=== PATIENT | female | born 1955 | race Caucasian/White ===

== ENCOUNTER 2020-06-20 10:07 | Emergency (ER) | payer MEDICARE ==
[~2020-06-20] VITALS: Ht 157.5 cm; Wt 103.5 kg
[2020-06-20] MEDS ORDERED: SEVE0.8P6 PO (10:17)
[2020-06-20] MEDS ORDERED: ONDANSETRON HCL 4 MG/2 ML VIAL IVP ONE (10:45)
[2020-06-20 11:34] LABS: BASOPHILS % (AUTO) 2.4 % (0.0-2.0); EOSINOPHILS % (AUTO) 0.3 % (1.0-6.0); HEMATOCRIT 39.2 % (36-46); HEMOGLOBIN 13.1 g/dL (12.0-16.0); LYMPHOCYTES # (AUTO) 0.7 K/uL (1.0-4.8); LYMPHOCYTES % (AUTO) 14.9 % (22.0-44.0); MEAN CORPUSCULAR HEMOGLOBIN 33.2 pg (26.0-34.0); MEAN CORPUSCULAR HGB CONC 33.5 G/dL (31.0-37.0); MEAN CORPUSCULAR VOLUME 99 fL (80-100); MONOCYTES # (AUTO) 0.2 K/uL (0.1-1.0); MONOCYTES % (AUTO) 5.1 % (2.0-9.0); NEUTROPHILS # (AUTO) 3.5 K/uL (1.8-7.7); NEUTROPHILS % (AUTO) 77.3 % (40.0-70.0); PLATELET COUNT (AUTO) 178 K/uL (150-450); RED BLOOD CELL COUNT(AUTO) 3.95 MIL/uL (4.00-5.20)
[2020-06-20 12:19] LABS: CALCIUM, TOTAL 9.4 mg/dL (8.8-10.5); CREATININE 3.77 mg/dL (0.60-1.30); POTASSIUM 4.1 mmol/L (3.5-5.1)
[2020-06-20 12:22] LABS: COVID AG,FIA SOURCE NASOPHARYNGEAL
[2020-06-20 12:22] LABS: PROTHROMBIN TIME 10.2 SEC (9.4-11.6)
[2020-06-20 12:27] LABS: LACTIC ACID 1.8 mmol/L (0.4-2.0)
[2020-06-20 12:29] LABS: ALBUMIN 3.6 g/dL (3.4-5.0); BILIRUBIN,TOTAL 0.4 mg/dL (0.1-1.0); TOTAL PROTEIN, SERUM 7.6 g/dL (6.4-8.2)
[2020-06-20 13:00] VITALS: BP 110/62
== END 2020-06-20 13:15 | disposition home or self-care (01) ==
LOC: EMS 10:26
DX: K92.0 Hematemesis (principal); I12.0 Hypertensive chronic kidney disease with stage 5 chronic kidney disease or end stage renal disease; E11.22 Type 2 diabetes mellitus with diabetic chronic kidney disease; N18.6 End stage renal disease; I25.10 Atherosclerotic heart disease of native coronary artery without angina pectoris; Z20.822 Contact with and (suspected) exposure to COVID-19; Z99.2 Dependence on renal dialysis; Z88.1 Allergy status to other antibiotic agents
CPT/HCPCS: 36415; 71045; 80053; 83605; 83690; 83880; 84484; 85025; 85610; 85730; 86850; 86900; 86901; 87426; 93005; 96374; 99285; J2405

== ENCOUNTER 2022-03-19 21:46 | Inpatient (IN) | payer MEDICARE, OTHER ==
[~2022-03-19] VITALS: Ht 160 cm; Wt 110.0 kg
[~2022-03-19 21:46] MED LIST: SEVE0.8P6 PO
[2022-03-19 22:33] LABS: CALCIUM, TOTAL 8.8 mg/dL (8.8-10.5); CREATININE 4.33 mg/dL (0.60-1.30); POTASSIUM 4.7 mmol/L (3.5-5.1)
[2022-03-19 22:38] LABS: ALBUMIN 2.7 g/dL (3.4-5.0); BILIRUBIN,TOTAL 1.1 mg/dL (0.1-1.0); TOTAL PROTEIN, SERUM 6.7 g/dL (6.4-8.2)
[2022-03-19 22:39] LABS: BASOPHILS % (AUTO) 0.8 % (0.0-2.0); EOSINOPHILS % (AUTO) 0.2 % (1.0-6.0); LYMPHOCYTES % (AUTO) 6.2 % (22.0-44.0); MEAN CORPUSCULAR HEMOGLOBIN 35.1 pg (26.0-34.0); MEAN CORPUSCULAR HGB CONC 31.8 G/dL (31.0-37.0); MEAN CORPUSCULAR VOLUME 110 fL (80-100); MONOCYTES # (AUTO) 0.9 K/uL (0.1-1.0); MONOCYTES % (AUTO) 5.6 % (2.0-9.0); NEUTROPHILS # (AUTO) 13.8 K/uL (1.8-7.7); PLATELET COUNT (AUTO) 161 K/uL (150-450); RED BLOOD CELL COUNT(AUTO) 1.86 MIL/uL (4.00-5.20); RED CELL DISTRIBUTION WIDTH 16.1 % (11.5-14.5)
[2022-03-19 22:53] LABS: NEUTROPHILS % (AUTO) 87.2 % (40.0-70.0)
[2022-03-19 22:55] LABS: HEMATOCRIT 20.5 % (36-46); HEMOGLOBIN 6.5 g/dL (12.0-16.0)
[2022-03-19 23:25] LABS: COVID AG,FIA SOURCE NASAL SWAB
[2022-03-19] MEDS: PANTOPRAZOLE SODIUM 40 MG/VIAL IVP SCH (23:46)
[2022-03-20] VITALS (8 sets, daily range): BP systolic 90–123; BP diastolic 43–99
[2022-03-20] MEDS ORDERED: PANTOPRAZOLE SODIUM 40 MG/VIAL IVP ONE (00:30)
[2022-03-20] MEDS ORDERED: PANTOPRAZOLE SODIUM 80 MG in SODIUM CHLORIDE 0.9% 100 ML IV SCH (00:30)
[2022-03-20] MEDS ORDERED: ACETAMINOPHEN 650 MG/ISO-OSM 65 ML IV ONE (03:30)
[2022-03-20] MEDS ORDERED: LORazepam 2 MG/ML VIAL IVP ONE (03:30)
[2022-03-20 07:24] LABS: BASOPHILS % (AUTO) 0.6 % (0.0-2.0); EOSINOPHILS % (AUTO) 0.1 % (1.0-6.0); HEMATOCRIT 21.1 % (36-46); HEMOGLOBIN 7.1 g/dL (12.0-16.0); LYMPHOCYTES # (AUTO) 1.1 K/uL (1.0-4.8); LYMPHOCYTES % (AUTO) 6.6 % (22.0-44.0); MEAN CORPUSCULAR HEMOGLOBIN 34.7 pg (26.0-34.0); MEAN CORPUSCULAR HGB CONC 33.5 G/dL (31.0-37.0); MEAN CORPUSCULAR VOLUME 103 fL (80-100); MONOCYTES # (AUTO) 0.9 K/uL (0.1-1.0); MONOCYTES % (AUTO) 5.5 % (2.0-9.0); NEUTROPHILS # (AUTO) 14.8 K/uL (1.8-7.7); PLATELET COUNT (AUTO) 150 K/uL (150-450); RED BLOOD CELL COUNT(AUTO) 2.04 MIL/uL (4.00-5.20); RED CELL DISTRIBUTION WIDTH 18.4 % (11.5-14.5)
[2022-03-20 07:26] LABS: NEUTROPHILS % (AUTO) 87.2 % (40.0-70.0)
[2022-03-20] MEDS: DOCUSATE SODIUM 100 MG CAPSULE PO SCH ×2 (08:02→21:00)
[2022-03-20] MEDS: ACETAMINOPHEN 325 MG TABLET PO PRN ×2 (09:24→22:08)
[2022-03-20 10:26] LABS: INFLUENZA TYPE A NEGATIVE FOR TYPE A (NEGATIVE); INFLUENZA TYPE B NEGATIVE FOR TYPE B (NEGATIVE)
[2022-03-20] MEDS: PANTOPRAZOLE SODIUM 40 MG/VIAL IVP SCH ×2 (10:28→21:59)
[2022-03-20] MEDS: FOLIC ACID/VIT B COMPLEX AND C TABLET PO SCH (10:28)
[2022-03-20] MEDS ORDERED: LORazepam 1 MG TABLET PO ONE ×2 (13:00→23:30)
[2022-03-21] VITALS (9 sets, daily range): BP systolic 90–126; BP diastolic 37–77
[2022-03-21 07:05] LABS: CALCIUM, TOTAL 8.7 mg/dL (8.8-10.5); CREATININE 6.69 mg/dL (0.60-1.30); PHOSPHORUS 7.7 mg/dL (2.5-4.9)
[2022-03-21 07:11] LABS: POTASSIUM 6.2 mmol/L (3.5-5.1)
[2022-03-21 07:48] LABS: % IRON SATURATION 86.5 % (22-44)
[2022-03-21 08:45] LABS: HEMATOCRIT 21.4 % (36-46)
[2022-03-21] MEDS: FOLIC ACID/VIT B COMPLEX AND C TABLET PO SCH (09:00)
[2022-03-21] MEDS: PANTOPRAZOLE SODIUM 40 MG/VIAL IVP SCH ×2 (09:00→22:11)
[2022-03-21] MEDS: DOCUSATE SODIUM 100 MG CAPSULE PO SCH ×2 (09:00→21:00)
[2022-03-21] MEDS ORDERED: EPINEPHrine 1:10,000 [1 MG/10 ML] SYRINGE IM ONE (10:00)
[2022-03-21] MEDS ORDERED: DEXTROSE 50%-WATER 25 GM/50 ML SYRINGE IVP ONE (11:00)
[2022-03-21] MEDS ORDERED: CALCIUM GLUCONATE 100 MG/ML 10 ML IVP ONE (11:00)
[2022-03-21] MEDS ORDERED: INSULIN REGULAR, HUMAN 100 UNITS/ML IVP ONE (11:00)
[2022-03-21] MEDS ORDERED: BENZOCAINE 20% 50 MCG/SPRAY 57 GM TP ONE (12:37)
[2022-03-21 12:53] LABS: ABG BASE EXCESS -10.6 mmol/L (-2.0-3.0); ABG CARBOXYHEMOGLOBIN 0.8 % (0.0-1.5); ABG HCO3 16.6 mmol/L (22.0-26.0); ABG METHEMOGLOBIN 0.3 % (0.0-1.5); ABG OXYGEN CONTENT 12.1 mL/dL (15.0-23.0); ABG OXYGEN SATURATION 99.4 % (95.0-98.0); ABG OXYHEMOGLOBIN 98.3 % (94.0-100.0); ABG PCO2 32 mmHg (35-45); ABG PH 7.314 (7.35-7.450); ABG TOTAL HEMOGLOBIN 8.3 G/dL (12.0-18.0); PO2, ARTERIAL BG 227.4 mmHg (79.0-87.0); SOURCE, BLOOD GAS ARTERIAL; TEMPERATURE, FAHRENHEIT, BG 97.4 FAHREN (96.0-98.6)
[2022-03-21 12:54] LABS: O2 DEVICE,BLOOD GAS NC (ROOM AIR); SITE, BLOOD GAS LFT BRACHIAL
[2022-03-21 12:58] LABS: MEAN CORPUSCULAR HEMOGLOBIN 33.8 pg (26.0-34.0); MEAN CORPUSCULAR HGB CONC 31.6 G/dL (31.0-37.0); MEAN CORPUSCULAR VOLUME 107 fL (80-100); PLATELET COUNT (AUTO) 169 K/uL (150-450); RED CELL DISTRIBUTION WIDTH 18.4 % (11.5-14.5)
[2022-03-21 13:14] LABS: HEMATOCRIT 19.2 % (36-46); HEMOGLOBIN 6.1 g/dL (12.0-16.0)
[2022-03-21 13:36] LABS: BAND NEUTROPHILS % (MANUAL) 16 % (0-5); LYMPHOCYTES % (MANUAL) 2 % (22-44); MONOCYTES % (MANUAL) 6 % (2-9); SEGMENTED NEUTROPHILS % 76 % (40-70)
[2022-03-21] MEDS ORDERED: SODIUM CHLORIDE 0.9% 250 ML IV ONE (21:54)
[2022-03-21] MEDS: DEXTROSE 50%-WATER 25 GM/50 ML SYRINGE IVP PRN (22:10)
[2022-03-21] MEDS: CefTRIAXone 1 GM/DEXTROSE 50 ML IV SCH (22:11)
[2022-03-21] MEDS: DEXTROSE 5%-0.45% SODIUM CHL 1,000 ML IV SCH (22:30)
[2022-03-21 22:53] LABS: GLUCOMETER DEV NAME(LOC) 5S.1B; GLUCOSE,POINT OF CARE 82 MG/DL (70-110)
[2022-03-22] VITALS (7 sets, daily range): BP systolic 98–115; BP diastolic 37–71
[2022-03-22] MEDS: ACETAMINOPHEN 325 MG TABLET PO PRN ×2 (00:04→23:41)
[2022-03-22 00:30] LABS: HEMATOCRIT 24.5 % (36-46); HEMOGLOBIN 8.2 g/dL (12.0-16.0)
[2022-03-22 01:13] LABS: GLUCOMETER DEV NAME(LOC) 5S.2B; GLUCOSE,POINT OF CARE 20 MG/DL (70-110)
[2022-03-22] MEDS ORDERED: MORPHINE SULFATE 2 MG/ML SYRINGE IVP ONE (03:45)
[2022-03-22] MEDS ORDERED: IOHEXOL 350 MG/ML 100 ML VIAL ONE (04:12)
[2022-03-22] MEDS ORDERED: SODIUM CHLORIDE 0.9% 100 ML ONE (04:13)
[2022-03-22 06:47] LABS: GLUCOSE,POINT OF CARE 50 MG/DL (70-110)
[2022-03-22] MEDS: DEXTROSE 50%-WATER 25 GM/50 ML SYRINGE IVP PRN (06:53)
[2022-03-22 07:07] LABS: GLUCOSE,POINT OF CARE 299 MG/DL (70-110)
[2022-03-22] MEDS: PANTOPRAZOLE SODIUM 40 MG/VIAL IVP SCH ×2 (09:00→21:21)
[2022-03-22] MEDS: DOCUSATE SODIUM 100 MG CAPSULE PO SCH ×2 (09:00→21:00)
[2022-03-22] MEDS: EPOETIN ALFA 10,000 UNITS/ML VIAL SQ SCH (09:00)
[2022-03-22] MEDS: FOLIC ACID/VIT B COMPLEX AND C TABLET PO SCH (09:00)
[2022-03-22 09:15] LABS: BASOPHILS % (AUTO) 0.1 % (0.0-2.0); EOSINOPHILS % (AUTO) 0 % (1.0-6.0); HEMATOCRIT 23.1 % (36-46); HEMOGLOBIN 7.7 g/dL (12.0-16.0); LYMPHOCYTES # (AUTO) 0.4 K/uL (1.0-4.8); LYMPHOCYTES % (AUTO) 1.6 % (22.0-44.0); MEAN CORPUSCULAR HEMOGLOBIN 33.1 pg (26.0-34.0); MEAN CORPUSCULAR HGB CONC 33.4 G/dL (31.0-37.0); MEAN CORPUSCULAR VOLUME 99 fL (80-100); MONOCYTES # (AUTO) 0.8 K/uL (0.1-1.0); MONOCYTES % (AUTO) 3.5 % (2.0-9.0); NEUTROPHILS # (AUTO) 21.8 K/uL (1.8-7.7); PLATELET COUNT (AUTO) 160 K/uL (150-450); RED BLOOD CELL COUNT(AUTO) 2.32 MIL/uL (4.00-5.20); RED CELL DISTRIBUTION WIDTH 21.8 % (11.5-14.5)
[2022-03-22 09:16] LABS: NEUTROPHILS % (AUTO) 94.8 % (40.0-70.0)
[2022-03-22 09:27] LABS: CALCIUM, TOTAL 8.3 mg/dL (8.8-10.5); CREATININE 5.21 mg/dL (0.60-1.30); MAGNESIUM 1.9 mg/dL (1.80-2.40); PHOSPHORUS 5.7 mg/dL (2.5-4.9); POTASSIUM 4.6 mmol/L (3.5-5.1)
[2022-03-22 13:06] LABS: GLUCOSE,POINT OF CARE 175 MG/DL (70-110)
[2022-03-22 17:36] LABS: GLUCOMETER DEV NAME(LOC) 5N.1C; GLUCOSE,POINT OF CARE 115 MG/DL (70-110)
[2022-03-22] MEDS ORDERED: PHENYLEPHRINE 200 MG/D5%-WATER 250 ML IV PRN (18:00)
[2022-03-22] MEDS: DEXTROSE 5%-0.45% SODIUM CHL 1,000 ML IV SCH (18:21)
[2022-03-22 20:21] LABS: GLUCOMETER DEV NAME(LOC) 5S.1B; GLUCOSE,POINT OF CARE 136 MG/DL (70-110)
[2022-03-22] MEDS: CefTRIAXone 1 GM/DEXTROSE 50 ML IV SCH (21:20)
[2022-03-22] MEDS ORDERED: SODIUM CHLORIDE 0.9% 250 ML IV ONE (21:36)
[2022-03-23] VITALS (17 sets, daily range): BP systolic 100–155; BP diastolic 42–78
[2022-03-23 01:11] LABS: GLUCOSE,POINT OF CARE 69 MG/DL (70-110)
[2022-03-23 01:51] LABS: GLUCOSE,POINT OF CARE 157 MG/DL (70-110)
[2022-03-23] MEDS: MORPHINE SULFATE 2 MG/ML SYRINGE IVP PRN (01:55)
[2022-03-23 06:07] LABS: BASOPHILS % (AUTO) 0.5 % (0.0-2.0); EOSINOPHILS % (AUTO) 0 % (1.0-6.0); HEMATOCRIT 22.6 % (36-46); HEMOGLOBIN 7.4 g/dL (12.0-16.0); LYMPHOCYTES # (AUTO) 0.5 K/uL (1.0-4.8); LYMPHOCYTES % (AUTO) 2.7 % (22.0-44.0); MEAN CORPUSCULAR HEMOGLOBIN 33.6 pg (26.0-34.0); MEAN CORPUSCULAR HGB CONC 32.8 G/dL (31.0-37.0); MEAN CORPUSCULAR VOLUME 102 fL (80-100); MONOCYTES # (AUTO) 0.8 K/uL (0.1-1.0); MONOCYTES % (AUTO) 4.1 % (2.0-9.0); NEUTROPHILS # (AUTO) 18.1 K/uL (1.8-7.7); PLATELET COUNT (AUTO) 162 K/uL (150-450); RED BLOOD CELL COUNT(AUTO) 2.21 MIL/uL (4.00-5.20); RED CELL DISTRIBUTION WIDTH 21.7 % (11.5-14.5)
[2022-03-23 06:10] LABS: CALCIUM, TOTAL 8.3 mg/dL (8.8-10.5); CREATININE 6.76 mg/dL (0.60-1.30); POTASSIUM 5.2 mmol/L (3.5-5.1)
[2022-03-23 06:27] LABS: NEUTROPHILS % (AUTO) 92.7 % (40.0-70.0)
[2022-03-23] MEDS: DOCUSATE SODIUM 100 MG CAPSULE PO SCH ×2 (09:32→20:42)
[2022-03-23] MEDS: FOLIC ACID/VIT B COMPLEX AND C TABLET PO SCH (09:32)
[2022-03-23] MEDS: PANTOPRAZOLE SODIUM 40 MG/VIAL IVP SCH ×2 (09:33→20:42)
[2022-03-23 13:11] LABS: GLUCOSE,POINT OF CARE 134 MG/DL (70-110)
[2022-03-23 13:11] LABS: GLUCOSE,POINT OF CARE 177 MG/DL (70-110)
[2022-03-23] MEDS: ACETAMINOPHEN 325 MG TABLET PO PRN (14:24)
[2022-03-23] MEDS: DEXTROSE 5%-0.45% SODIUM CHL 1,000 ML IV SCH ×2 (14:30→20:58)
[2022-03-23] MEDS: CefTRIAXone 1 GM/DEXTROSE 50 ML IV SCH (20:43)
[2022-03-23] MEDS: INSULIN LISPRO 100 UNITS/ML SQ PRN (20:52)
[2022-03-24 00:16] LABS: GLUCOMETER DEV NAME(LOC) 5S.2B; GLUCOSE,POINT OF CARE 91 MG/DL (70-110)
[2022-03-24 00:22] LABS: GLUCOSE,POINT OF CARE 124 MG/DL (70-110)
[2022-03-24 00:22] LABS: GLUCOSE,POINT OF CARE 116 MG/DL (70-110)
[2022-03-24] MEDS: MORPHINE SULFATE 2 MG/ML SYRINGE IVP PRN ×3 (02:26→14:42)
[2022-03-24 04:31] VITALS: BP 122/57
[2022-03-24 06:12] LABS: GLUCOMETER DEV NAME(LOC) 5N.1C; GLUCOSE,POINT OF CARE 84 MG/DL (70-110)
[2022-03-24] MEDS: DEXTROSE 50%-WATER 25 GM/50 ML SYRINGE IVP PRN (06:23)
[2022-03-24] MEDS: LORazepam 2 MG/ML VIAL IVP PRN ×2 (06:28→14:42)
[2022-03-24 06:29] LABS: HEMATOCRIT 28.3 % (36-46); HEMOGLOBIN 9.3 g/dL (12.0-16.0); MEAN CORPUSCULAR HEMOGLOBIN 32.7 pg (26.0-34.0); MEAN CORPUSCULAR VOLUME 99 fL (80-100); PLATELET COUNT (AUTO) 148 K/uL (150-450); RED BLOOD CELL COUNT(AUTO) 2.85 MIL/uL (4.00-5.20); RED CELL DISTRIBUTION WIDTH 22.9 % (11.5-14.5)
[2022-03-24 06:46] LABS: GLUCOMETER DEV NAME(LOC) 5S.2B; GLUCOSE,POINT OF CARE < 10 MG/DL (70-110)
[2022-03-24 06:46] LABS: GLUCOMETER DEV NAME(LOC) 5S.2B; GLUCOSE,POINT OF CARE 146 MG/DL (70-110)
[2022-03-24 06:46] LABS: GLUCOMETER DEV NAME(LOC) 5S.2B; GLUCOSE,POINT OF CARE 70 MG/DL (70-110)
[2022-03-24 07:37] VITALS: BP 96/59
[2022-03-24 08:48] LABS: BAND NEUTROPHILS % (MANUAL) 21 % (0-5); LYMPHOCYTES % (MANUAL) 9 % (22-44); MONOCYTES % (MANUAL) 2 % (2-9); SEGMENTED NEUTROPHILS % 68 % (40-70)
[2022-03-24] MEDS: EPOETIN ALFA 10,000 UNITS/ML VIAL SQ SCH (09:24)
[2022-03-24] MEDS: DOCUSATE SODIUM 100 MG CAPSULE PO SCH ×2 (09:24→20:23)
[2022-03-24] MEDS: FOLIC ACID/VIT B COMPLEX AND C TABLET PO SCH (09:24)
[2022-03-24] MEDS: PANTOPRAZOLE SODIUM 40 MG/VIAL IVP SCH ×2 (09:25→20:22)
[2022-03-24 09:34] LABS: CALCIUM, TOTAL 8.4 mg/dL (8.8-10.5); CREATININE 4.73 mg/dL (0.60-1.30); POTASSIUM 4.5 mmol/L (3.5-5.1)
[2022-03-24 11:37] VITALS: BP 118/56
[2022-03-24 15:31] VITALS: BP 125/52
[2022-03-24] MEDS: NYSTATIN 15 GM POWDER BOTTLE TP SCH (17:07)
[2022-03-24] MEDS: ACETAMINOPHEN 325 MG TABLET PO PRN (17:10)
[2022-03-24] MEDS: CefTRIAXone 1 GM/DEXTROSE 50 ML IV SCH (19:39)
[2022-03-24 20:03] VITALS: BP 110/50
[2022-03-24] MEDS: INSULIN LISPRO 100 UNITS/ML SQ PRN (20:24)
[2022-03-24 20:41] LABS: GLUCOMETER DEV NAME(LOC) 5N.1C; GLUCOSE,POINT OF CARE 202 MG/DL (70-110)
[2022-03-24 20:57] LABS: GLUCOMETER DEV NAME(LOC) 5S.1B; GLUCOSE,POINT OF CARE 99 MG/DL (70-110)
[2022-03-24 20:57] LABS: GLUCOMETER DEV NAME(LOC) 5S.1B; GLUCOSE,POINT OF CARE 111 MG/DL (70-110)
[2022-03-25] VITALS (10 sets, daily range): BP systolic 92–116; BP diastolic 33–81
[2022-03-25] MEDS: DEXTROSE 50%-WATER 25 GM/50 ML SYRINGE IVP PRN (05:09)
[2022-03-25 05:36] LABS: GLUCOMETER DEV NAME(LOC) 5S.1B; GLUCOSE,POINT OF CARE 165 MG/DL (70-110)
[2022-03-25 05:51] LABS: GLUCOMETER DEV NAME(LOC) 5S.2B; GLUCOSE,POINT OF CARE 53 MG/DL (70-110)
[2022-03-25] MEDS: DEXTROSE 5%-0.45% SODIUM CHL 1,000 ML IV SCH (06:30)
[2022-03-25 06:33] LABS: ALBUMIN 2.3 g/dL (3.4-5.0); BILIRUBIN,TOTAL 0.5 mg/dL (0.1-1.0); CALCIUM, TOTAL 8.6 mg/dL (8.8-10.5); CREATININE 6.58 mg/dL (0.60-1.30); POTASSIUM 4.9 mmol/L (3.5-5.1)
[2022-03-25 06:41] LABS: HEMATOCRIT 30.1 % (36-46); HEMOGLOBIN 9.7 g/dL (12.0-16.0); MEAN CORPUSCULAR HEMOGLOBIN 32.2 pg (26.0-34.0); MEAN CORPUSCULAR HGB CONC 32.4 G/dL (31.0-37.0); MEAN CORPUSCULAR VOLUME 99 fL (80-100); PLATELET COUNT (AUTO) 147 K/uL (150-450); RED BLOOD CELL COUNT(AUTO) 3.03 MIL/uL (4.00-5.20); RED CELL DISTRIBUTION WIDTH 23.9 % (11.5-14.5)
[2022-03-25 06:59] LABS: C-REACTIVE PROTEIN QUANT 27.05 mg/dL (0.00-0.30)
[2022-03-25 08:25] LABS: BAND NEUTROPHILS % (MANUAL) 17 % (0-5); LYMPHOCYTES % (MANUAL) 6 % (22-44); MONOCYTES % (MANUAL) 5 % (2-9); SEGMENTED NEUTROPHILS % 72 % (40-70)
[2022-03-25] MEDS: PANTOPRAZOLE SODIUM 40 MG/VIAL IVP SCH ×2 (09:15→20:54)
[2022-03-25] MEDS: NYSTATIN 15 GM POWDER BOTTLE TP SCH (09:15)
[2022-03-25] MEDS: DOCUSATE SODIUM 100 MG CAPSULE PO SCH ×2 (09:15→20:53)
[2022-03-25] MEDS: FOLIC ACID/VIT B COMPLEX AND C TABLET PO SCH (09:15)
[2022-03-25 11:11] LABS: GLUCOMETER DEV NAME(LOC) 5N.1C; GLUCOSE,POINT OF CARE 189 MG/DL (70-110)
[2022-03-25] MEDS: INSULIN LISPRO 100 UNITS/ML SQ PRN (12:24)
[2022-03-25] MEDS: MORPHINE SULFATE 2 MG/ML SYRINGE IVP PRN (14:41)
[2022-03-25] MEDS ORDERED: SODIUM CHLORIDE 0.9% 2,000 ML ONE (15:27)
[2022-03-25] MEDS: TETRACYCLINE HCL 250 MG CAPSULE PO SCH (16:48)
[2022-03-25] MEDS: BISMUTH SUBSALICYLATE 262 MG CHEWABLE TABLET CHEW SCH ×2 (16:49→20:56)
[2022-03-25] MEDS: ACETAMINOPHEN 325 MG TABLET PO PRN (17:49)
[2022-03-25] MEDS: LORazepam 2 MG/ML VIAL IVP PRN (17:49)
[2022-03-25] MEDS: MetroNIDAZOLE 500 MG TABLET PO SCH (20:53)
[2022-03-25] MEDS: CefTRIAXone 1 GM/DEXTROSE 50 ML IV SCH (20:56)
[2022-03-25 21:31] LABS: GLUCOMETER DEV NAME(LOC) 5N.1C; GLUCOSE,POINT OF CARE 150 MG/DL (70-110)
[2022-03-25 21:31] LABS: GLUCOMETER DEV NAME(LOC) 5N.1C; GLUCOSE,POINT OF CARE 78 MG/DL (70-110)
[2022-03-25 21:55] LABS: HEMATOCRIT 27.3 % (36-46); HEMOGLOBIN 8.7 g/dL (12.0-16.0)
[2022-03-26] VITALS (10 sets, daily range): BP systolic 73–123; BP diastolic 40–66
[2022-03-26] MEDS ORDERED: MIDODRINE HCL 5 MG TABLET PO ONE (01:00)
[2022-03-26] MEDS ORDERED: SODIUM CHLORIDE 0.9% 250 ML IV ONE (01:00)
[2022-03-26] MEDS: DEXTROSE 5%-0.45% SODIUM CHL 1,000 ML IV SCH (04:29)
[2022-03-26 05:36] LABS: GLUCOMETER DEV NAME(LOC) 5S.2B; GLUCOSE,POINT OF CARE 191 MG/DL (70-110)
[2022-03-26 05:42] LABS: GLUCOSE,POINT OF CARE 166 MG/DL (70-110)
[2022-03-26 06:04] LABS: HEMATOCRIT 27.4 % (36-46); HEMOGLOBIN 8.9 g/dL (12.0-16.0); MEAN CORPUSCULAR HEMOGLOBIN 32.2 pg (26.0-34.0); MEAN CORPUSCULAR HGB CONC 32.5 G/dL (31.0-37.0); MEAN CORPUSCULAR VOLUME 99 fL (80-100); PLATELET COUNT (AUTO) 143 K/uL (150-450); RED BLOOD CELL COUNT(AUTO) 2.77 MIL/uL (4.00-5.20); RED CELL DISTRIBUTION WIDTH 23.6 % (11.5-14.5)
[2022-03-26 06:46] LABS: BAND NEUTROPHILS % (MANUAL) 16 % (0-5); LYMPHOCYTES % (MANUAL) 5 % (22-44); MONOCYTES % (MANUAL) 7 % (2-9); SEGMENTED NEUTROPHILS % 72 % (40-70)
[2022-03-26] MEDS: DOCUSATE SODIUM 100 MG CAPSULE PO SCH ×2 (08:52→20:38)
[2022-03-26] MEDS: NYSTATIN 15 GM POWDER BOTTLE TP SCH (08:52)
[2022-03-26] MEDS: ATORVASTATIN CALCIUM 40 MG TABLET PO SCH (08:52)
[2022-03-26] MEDS: PANTOPRAZOLE SODIUM 40 MG/VIAL IVP SCH ×2 (08:52→20:38)
[2022-03-26] MEDS: MetroNIDAZOLE 500 MG TABLET PO SCH ×2 (08:52→20:39)
[2022-03-26] MEDS: FOLIC ACID/VIT B COMPLEX AND C TABLET PO SCH (08:54)
[2022-03-26] MEDS: BISMUTH SUBSALICYLATE 262 MG CHEWABLE TABLET CHEW SCH ×4 (08:54→20:39)
[2022-03-26] MEDS: TETRACYCLINE HCL 250 MG CAPSULE PO SCH (08:54)
[2022-03-26 09:17] LABS: HEMOGLOBIN A1C 6.1 % (3.8-5.6)
[2022-03-26 09:47] LABS: CALCIUM, TOTAL 8.5 mg/dL (8.8-10.5); CREATININE 6.54 mg/dL (0.60-1.30); PHOSPHORUS 6.8 mg/dL (2.5-4.9); POTASSIUM 4.7 mmol/L (3.5-5.1)
[2022-03-26 10:09] LABS: C-REACTIVE PROTEIN QUANT 26.89 mg/dL (0.00-0.30)
[2022-03-26] MEDS: EPOETIN ALFA 10,000 UNITS/ML VIAL SQ SCH (12:11)
[2022-03-26 12:21] LABS: GLUCOSE,POINT OF CARE 115 MG/DL (70-110)
[2022-03-26 12:43] LABS: CALCIUM, TOTAL 8.3 mg/dL (8.8-10.5); CREATININE 6.71 mg/dL (0.60-1.30); POTASSIUM 4.7 mmol/L (3.5-5.1)
[2022-03-26 13:05] LABS: HEMATOCRIT 28.7 % (36-46); MEAN CORPUSCULAR HEMOGLOBIN 31.3 pg (26.0-34.0); MEAN CORPUSCULAR HGB CONC 31.4 G/dL (31.0-37.0); MEAN CORPUSCULAR VOLUME 100 fL (80-100); PLATELET COUNT (AUTO) 155 K/uL (150-450); RED BLOOD CELL COUNT(AUTO) 2.88 MIL/uL (4.00-5.20); RED CELL DISTRIBUTION WIDTH 25.2 % (11.5-14.5)
[2022-03-26 13:08] LABS: BAND NEUTROPHILS % (MANUAL) 17 % (0-5); LYMPHOCYTES % (MANUAL) 5 % (22-44); MONOCYTES % (MANUAL) 6 % (2-9); SEGMENTED NEUTROPHILS % 72 % (40-70)
[2022-03-26] MEDS: PHENYLEPHRINE HCL 800 MG in DEXTROSE 5%-WATER 170 ML IV PRN (14:09)
[2022-03-26] MEDS: MORPHINE SULFATE 2 MG/ML SYRINGE IVP PRN (14:47)
[2022-03-26] MEDS: CefTRIAXone 1 GM/DEXTROSE 50 ML IV SCH (20:31)
[2022-03-26 21:06] LABS: GLUCOSE,POINT OF CARE 119 MG/DL (70-110)
[2022-03-27] VITALS (14 sets, daily range): BP systolic 73–127; BP diastolic 26–78
[2022-03-27 00:06] LABS: GLUCOSE,POINT OF CARE 137 MG/DL (70-110)
[2022-03-27] MEDS ORDERED: SODIUM CHLORIDE 0.9% 250 ML IV ONE (03:08)
[2022-03-27] MEDS: DEXTROSE 5%-0.45% SODIUM CHL 1,000 ML IV SCH (03:48)
[2022-03-27] MEDS: ACETAMINOPHEN 325 MG TABLET PO PRN ×2 (03:48→09:12)
[2022-03-27 05:31] LABS: GLUCOSE,POINT OF CARE 124 MG/DL (70-110)
[2022-03-27 05:59] LABS: HEMATOCRIT 28.4 % (36-46); MEAN CORPUSCULAR HEMOGLOBIN 31.7 pg (26.0-34.0); MEAN CORPUSCULAR HGB CONC 31.8 G/dL (31.0-37.0); MEAN CORPUSCULAR VOLUME 100 fL (80-100); PLATELET COUNT (AUTO) 184 K/uL (150-450); RED BLOOD CELL COUNT(AUTO) 2.85 MIL/uL (4.00-5.20); RED CELL DISTRIBUTION WIDTH 24.8 % (11.5-14.5)
[2022-03-27 06:41] LABS: ALBUMIN 2.1 g/dL (3.4-5.0); BILIRUBIN,TOTAL 0.5 mg/dL (0.1-1.0); C-REACTIVE PROTEIN QUANT 24.79 mg/dL (0.00-0.30); CALCIUM, TOTAL 8.4 mg/dL (8.8-10.5); CREATININE 7.68 mg/dL (0.60-1.30); TOTAL PROTEIN, SERUM 6.9 g/dL (6.4-8.2)
[2022-03-27 08:02] LABS: BAND NEUTROPHILS % (MANUAL) 9 % (0-5); EOSINOPHILS % (MANUAL) 2 % (1-6); LYMPHOCYTES % (MANUAL) 7 % (22-44); MONOCYTES % (MANUAL) 2 % (2-9); SEGMENTED NEUTROPHILS % 80 % (40-70)
[2022-03-27] MEDS: DOCUSATE SODIUM 100 MG CAPSULE PO SCH ×2 (08:28→20:22)
[2022-03-27] MEDS: FOLIC ACID/VIT B COMPLEX AND C TABLET PO SCH (08:29)
[2022-03-27] MEDS: MetroNIDAZOLE 500 MG TABLET PO SCH ×2 (08:29→20:22)
[2022-03-27] MEDS: BISMUTH SUBSALICYLATE 262 MG CHEWABLE TABLET CHEW SCH ×4 (08:29→20:22)
[2022-03-27] MEDS: TETRACYCLINE HCL 250 MG CAPSULE PO SCH (08:29)
[2022-03-27] MEDS: PANTOPRAZOLE SODIUM 40 MG/VIAL IVP SCH ×2 (08:29→20:22)
[2022-03-27] MEDS: ATORVASTATIN CALCIUM 40 MG TABLET PO SCH (08:29)
[2022-03-27] MEDS: NYSTATIN 15 GM POWDER BOTTLE TP SCH (08:32)
[2022-03-27] MEDS ORDERED: DiphenhydrAMINE HCL 50 MG/ML VIAL IVP ONE (09:45)
[2022-03-27] MEDS: ONDANSETRON HCL 4 MG/2 ML VIAL IVP PRN (09:46)
[2022-03-27] MEDS ORDERED: CARV6 PO (12:25)
[2022-03-27] MEDS ORDERED: SEVE800T17 PO (12:25)
[2022-03-27] MEDS ORDERED: FURO80TA3 PO (12:25)
[2022-03-27 13:01] LABS: GLUCOSE,POINT OF CARE 137 MG/DL (70-110)
[2022-03-27] MEDS ORDERED: COSYNTROPIN 0.25 MG VIAL IVP ONE (15:00)
[2022-03-27] MEDS: MIDODRINE HCL 5 MG TABLET PO SCH ×2 (15:45→20:22)
[2022-03-27] MEDS: BENZONATATE 100 MG CAPSULE PO PRN (19:20)
[2022-03-27] MEDS: CefTRIAXone 1 GM/DEXTROSE 50 ML IV SCH (20:22)
[2022-03-27] MEDS: INSULIN LISPRO 100 UNITS/ML SQ PRN (20:39)
[2022-03-27 21:02] LABS: GLUCOSE,POINT OF CARE 84 MG/DL (70-110)
[2022-03-28] VITALS: BP 92/53
[2022-03-28 00:22] LABS: GLUCOSE,POINT OF CARE 167 MG/DL (70-110)
[2022-03-28] MEDS: DEXTROSE 5%-0.45% SODIUM CHL 1,000 ML IV SCH (02:56)
[2022-03-28 04:00] VITALS: BP 94/49
[2022-03-28] MEDS: BENZONATATE 100 MG CAPSULE PO PRN ×3 (05:59→19:59)
[2022-03-28 06:47] LABS: HEMOGLOBIN 9.4 g/dL (12.0-16.0)
[2022-03-28 07:09] LABS: ALBUMIN 2.1 g/dL (3.4-5.0); BILIRUBIN,TOTAL 0.4 mg/dL (0.1-1.0); CALCIUM, TOTAL 8.8 mg/dL (8.8-10.5); CREATININE 4.88 mg/dL (0.60-1.30); POTASSIUM 4.4 mmol/L (3.5-5.1); TOTAL PROTEIN, SERUM 6.5 g/dL (6.4-8.2)
[2022-03-28 07:15] LABS: BASOPHILS % (AUTO) 0.4 % (0.0-2.0); EOSINOPHILS % (AUTO) 0.9 % (1.0-6.0); HEMATOCRIT 29.9 % (36-46); LYMPHOCYTES % (AUTO) 5.8 % (22.0-44.0); MEAN CORPUSCULAR HEMOGLOBIN 31.4 pg (26.0-34.0); MEAN CORPUSCULAR HGB CONC 31.4 G/dL (31.0-37.0); MEAN CORPUSCULAR VOLUME 100 fL (80-100); MONOCYTES # (AUTO) 1.2 K/uL (0.1-1.0); MONOCYTES % (AUTO) 7.2 % (2.0-9.0); NEUTROPHILS # (AUTO) 14.3 K/uL (1.8-7.7); PLATELET COUNT (AUTO) 168 K/uL (150-450); RED BLOOD CELL COUNT(AUTO) 2.98 MIL/uL (4.00-5.20); RED CELL DISTRIBUTION WIDTH 24.3 % (11.5-14.5)
[2022-03-28 07:32] LABS: NEUTROPHILS % (AUTO) 85.7 % (40.0-70.0)
[2022-03-28 08:00] VITALS: BP 109/42
[2022-03-28] MEDS: DOCUSATE SODIUM 100 MG CAPSULE PO SCH ×2 (08:48→20:02)
[2022-03-28] MEDS: PANTOPRAZOLE SODIUM 40 MG/VIAL IVP SCH ×2 (08:48→20:02)
[2022-03-28] MEDS: BISMUTH SUBSALICYLATE 262 MG CHEWABLE TABLET CHEW SCH ×4 (08:48→20:02)
[2022-03-28] MEDS: MetroNIDAZOLE 500 MG TABLET PO SCH ×3 (08:49→20:01)
[2022-03-28] MEDS: FOLIC ACID/VIT B COMPLEX AND C TABLET PO SCH (08:49)
[2022-03-28] MEDS: ATORVASTATIN CALCIUM 40 MG TABLET PO SCH (08:49)
[2022-03-28] MEDS: MIDODRINE HCL 5 MG TABLET PO SCH ×3 (08:50→20:01)
[2022-03-28] MEDS: NYSTATIN 15 GM POWDER BOTTLE TP SCH (08:52)
[2022-03-28] MEDS ORDERED: INDIUM IN-111 OXYQUINOLINE/.5MCL ISOTOPE 1 EA INJ INJ ONE (09:00)
[2022-03-28] MEDS: TETRACYCLINE HCL 250 MG CAPSULE PO SCH (11:26)
[2022-03-28 11:47] LABS: GLUCOSE,POINT OF CARE 101 MG/DL (70-110)
[2022-03-28 12:00] VITALS: BP 99/45
[2022-03-28 15:13] LABS: GLUCOSE,POINT OF CARE 121 MG/DL (70-110)
[2022-03-28 16:00] VITALS: BP 101/63
[2022-03-28] MEDS ORDERED: SODIUM CHLORIDE 0.9% 500 ML IV ONE (16:30)
[2022-03-28 20:00] VITALS: BP_SYST 69; BP_SYST 89; BP_DIAS 82; BP_DIAS 89
[2022-03-28 20:03] LABS: GLUCOSE,POINT OF CARE 110 MG/DL (70-110)
[2022-03-28] MEDS: CefTRIAXone 1 GM/DEXTROSE 50 ML IV SCH (20:03)
[2022-03-28] MEDS: ACETAMINOPHEN 325 MG TABLET PO PRN (20:03)
[2022-03-28 21:54] LABS: GLUCOSE,POINT OF CARE 119 MG/DL (70-110)
[2022-03-29] VITALS (7 sets, daily range): BP systolic 110–136; BP diastolic 40–110
[2022-03-29] MEDS: DEXTROSE 5%-0.45% SODIUM CHL 1,000 ML IV SCH (02:22)
[2022-03-29 05:48] LABS: HEMATOCRIT 28.6 % (36-46); HEMOGLOBIN 9.1 g/dL (12.0-16.0); MEAN CORPUSCULAR HEMOGLOBIN 31.6 pg (26.0-34.0); MEAN CORPUSCULAR HGB CONC 31.7 G/dL (31.0-37.0); MEAN CORPUSCULAR VOLUME 100 fL (80-100); PLATELET COUNT (AUTO) 185 K/uL (150-450); RED BLOOD CELL COUNT(AUTO) 2.87 MIL/uL (4.00-5.20); RED CELL DISTRIBUTION WIDTH 25.1 % (11.5-14.5)
[2022-03-29 05:54] LABS: ALBUMIN 1.9 g/dL (3.4-5.0); BILIRUBIN,TOTAL 0.4 mg/dL (0.1-1.0); C-REACTIVE PROTEIN QUANT 13.31 mg/dL (0.00-0.30); CALCIUM, TOTAL 8.5 mg/dL (8.8-10.5); CREATININE 6.35 mg/dL (0.60-1.30); POTASSIUM 4.2 mmol/L (3.5-5.1)
[2022-03-29 06:54] LABS: BAND NEUTROPHILS % (MANUAL) 8 % (0-5); EOSINOPHILS % (MANUAL) 1 % (1-6); LYMPHOCYTES % (MANUAL) 6 % (22-44); MONOCYTES % (MANUAL) 5 % (2-9); SEGMENTED NEUTROPHILS % 80 % (40-70)
[2022-03-29 07:28] LABS: GLUCOSE,POINT OF CARE 100 MG/DL (70-110)
[2022-03-29] MEDS: BISMUTH SUBSALICYLATE 262 MG CHEWABLE TABLET CHEW SCH ×4 (08:14→20:02)
[2022-03-29] MEDS: PANTOPRAZOLE SODIUM 40 MG/VIAL IVP SCH ×2 (08:14→20:02)
[2022-03-29] MEDS: MetroNIDAZOLE 500 MG TABLET PO SCH ×3 (08:15→20:02)
[2022-03-29] MEDS: DOCUSATE SODIUM 100 MG CAPSULE PO SCH ×2 (08:15→19:47)
[2022-03-29] MEDS: ATORVASTATIN CALCIUM 40 MG TABLET PO SCH (08:16)
[2022-03-29] MEDS: FOLIC ACID/VIT B COMPLEX AND C TABLET PO SCH (08:16)
[2022-03-29] MEDS: MIDODRINE HCL 5 MG TABLET PO SCH ×3 (08:16→20:03)
[2022-03-29] MEDS: TETRACYCLINE HCL 250 MG CAPSULE PO SCH (09:56)
[2022-03-29] MEDS: NYSTATIN 15 GM POWDER BOTTLE TP SCH (09:56)
[2022-03-29] MEDS: EPOETIN ALFA 10,000 UNITS/ML VIAL SQ SCH (09:57)
[2022-03-29 12:29] LABS: GLUCOSE,POINT OF CARE 109 MG/DL (70-110)
[2022-03-29] MEDS: BENZONATATE 100 MG CAPSULE PO PRN ×2 (12:37→20:08)
[2022-03-29] MEDS: DOXYCYCLINE HYCLATE 100 MG TABLET PO SCH ×2 (15:47→20:03)
[2022-03-29 19:43] LABS: GLUCOSE,POINT OF CARE 90 MG/DL (70-110)
[2022-03-29] MEDS: CefTRIAXone 1 GM/DEXTROSE 50 ML IV SCH (20:02)
[2022-03-29 21:33] LABS: GLUCOSE,POINT OF CARE 89 MG/DL (70-110)
[2022-03-29] MEDS: MORPHINE SULFATE 2 MG/ML SYRINGE IVP PRN (23:29)
[2022-03-30] VITALS (16 sets, daily range): BP systolic 97–142; BP diastolic 35–50
[2022-03-30] MEDS ORDERED: SODIUM CHLORIDE 0.9% 100 ML ONE (01:44)
[2022-03-30] MEDS ORDERED: IOHEXOL 350 MG/ML 100 ML VIAL ONE (01:45)
[2022-03-30] MEDS: DEXTROSE 5%-0.45% SODIUM CHL 1,000 ML IV SCH (02:39)
[2022-03-30] MEDS: BENZONATATE 100 MG CAPSULE PO PRN (04:25)
[2022-03-30 05:57] LABS: BASOPHILS % (AUTO) 0.3 % (0.0-2.0); EOSINOPHILS % (AUTO) 0.8 % (1.0-6.0); HEMATOCRIT 28.8 % (36-46); HEMOGLOBIN 9.2 g/dL (12.0-16.0); LYMPHOCYTES # (AUTO) 0.6 K/uL (1.0-4.8); LYMPHOCYTES % (AUTO) 3.9 % (22.0-44.0); MEAN CORPUSCULAR HEMOGLOBIN 32.1 pg (26.0-34.0); MEAN CORPUSCULAR VOLUME 100 fL (80-100); MONOCYTES % (AUTO) 6.6 % (2.0-9.0); NEUTROPHILS # (AUTO) 13.9 K/uL (1.8-7.7); PLATELET COUNT (AUTO) 197 K/uL (150-450); RED BLOOD CELL COUNT(AUTO) 2.88 MIL/uL (4.00-5.20); RED CELL DISTRIBUTION WIDTH 24.8 % (11.5-14.5)
[2022-03-30 06:02] LABS: NEUTROPHILS % (AUTO) 88.4 % (40.0-70.0)
[2022-03-30 06:38] LABS: GLUCOSE,POINT OF CARE 93 MG/DL (70-110)
[2022-03-30] MEDS: DOCUSATE SODIUM 100 MG CAPSULE PO SCH ×2 (09:00→20:31)
[2022-03-30] MEDS: ATORVASTATIN CALCIUM 40 MG TABLET PO SCH (09:19)
[2022-03-30] MEDS: MetroNIDAZOLE 500 MG TABLET PO SCH ×3 (09:19→20:31)
[2022-03-30] MEDS: BISMUTH SUBSALICYLATE 262 MG CHEWABLE TABLET CHEW SCH ×4 (09:19→20:30)
[2022-03-30] MEDS: PANTOPRAZOLE SODIUM 40 MG/VIAL IVP SCH ×2 (09:19→20:30)
[2022-03-30] MEDS: FOLIC ACID/VIT B COMPLEX AND C TABLET PO SCH (09:20)
[2022-03-30] MEDS: MIDODRINE HCL 5 MG TABLET PO SCH ×3 (09:20→20:27)
[2022-03-30] MEDS: TETRACYCLINE HCL 250 MG CAPSULE PO SCH (09:21)
[2022-03-30] MEDS: DOXYCYCLINE HYCLATE 100 MG TABLET PO SCH (09:21)
[2022-03-30] MEDS: NYSTATIN 15 GM POWDER BOTTLE TP SCH (09:22)
[2022-03-30] MEDS: ONDANSETRON HCL 4 MG/2 ML VIAL IVP PRN (09:28)
[2022-03-30 13:07] LABS: CORTISOL Baseline 14.2 ug/dL; CORTISOL STIMULATED,ACTH 29.1 ug/dL (Not Estab.)
[2022-03-30 15:08] LABS: GLUCOSE,POINT OF CARE 106 MG/DL (70-110)
[2022-03-30 18:12] LABS: GLUCOSE,POINT OF CARE 106 MG/DL (70-110)
[2022-03-30] MEDS ORDERED: SODIUM CHLORIDE 0.9% 250 ML IV ONE (19:46)
[2022-03-30] MEDS: CefTRIAXone 1 GM/DEXTROSE 50 ML IV SCH (20:20)
[2022-03-31] VITALS: BP 116/40
[2022-03-31] MEDS: BENZONATATE 100 MG CAPSULE PO PRN ×3 (00:33→22:34)
[2022-03-31 00:58] LABS: GLUCOSE,POINT OF CARE 100 MG/DL (70-110)
[2022-03-31] MEDS: DEXTROSE 5%-0.45% SODIUM CHL 1,000 ML IV SCH ×2 (02:30→14:35)
[2022-03-31 04:00] VITALS: BP 114/44
[2022-03-31 05:57] LABS: BASOPHILS % (AUTO) 0.4 % (0.0-2.0); EOSINOPHILS % (AUTO) 0.7 % (1.0-6.0); HEMOGLOBIN 9.4 g/dL (12.0-16.0); LYMPHOCYTES # (AUTO) 0.5 K/uL (1.0-4.8); LYMPHOCYTES % (AUTO) 3.2 % (22.0-44.0); MEAN CORPUSCULAR HEMOGLOBIN 32.5 pg (26.0-34.0); MEAN CORPUSCULAR HGB CONC 32.3 G/dL (31.0-37.0); MEAN CORPUSCULAR VOLUME 101 fL (80-100); MONOCYTES # (AUTO) 1.1 K/uL (0.1-1.0); MONOCYTES % (AUTO) 7.4 % (2.0-9.0); PLATELET COUNT (AUTO) 180 K/uL (150-450); RED BLOOD CELL COUNT(AUTO) 2.88 MIL/uL (4.00-5.20); RED CELL DISTRIBUTION WIDTH 25.8 % (11.5-14.5)
[2022-03-31 06:11] LABS: C-REACTIVE PROTEIN QUANT 8.76 mg/dL (0.00-0.30)
[2022-03-31 06:27] LABS: NEUTROPHILS % (AUTO) 88.3 % (40.0-70.0)
[2022-03-31 08:00] VITALS: BP 114/62
[2022-03-31] MEDS: FOLIC ACID/VIT B COMPLEX AND C TABLET PO SCH (09:04)
[2022-03-31] MEDS: TETRACYCLINE HCL 250 MG CAPSULE PO SCH (09:04)
[2022-03-31] MEDS: ATORVASTATIN CALCIUM 40 MG TABLET PO SCH (09:06)
[2022-03-31] MEDS: DOCUSATE SODIUM 100 MG CAPSULE PO SCH ×2 (09:06→21:00)
[2022-03-31] MEDS: PANTOPRAZOLE SODIUM 40 MG/VIAL IVP SCH ×2 (09:07→20:58)
[2022-03-31] MEDS: MIDODRINE HCL 5 MG TABLET PO SCH ×3 (09:09→21:01)
[2022-03-31] MEDS: NYSTATIN 15 GM POWDER BOTTLE TP SCH (09:11)
[2022-03-31] MEDS: EPOETIN ALFA 10,000 UNITS/ML VIAL SQ SCH (09:14)
[2022-03-31] MEDS: BISMUTH SUBSALICYLATE 262 MG CHEWABLE TABLET CHEW SCH ×4 (10:47→21:05)
[2022-03-31] MEDS: MetroNIDAZOLE 500 MG TABLET PO SCH ×3 (10:54→21:01)
[2022-03-31 12:00] VITALS: BP 104/53
[2022-03-31 12:54] LABS: GLUCOSE,POINT OF CARE 99 MG/DL (70-110)
[2022-03-31 16:00] VITALS: BP 115/50
[2022-03-31 19:33] LABS: GLUCOSE,POINT OF CARE 123 MG/DL (70-110)
[2022-03-31 19:33] LABS: GLUCOSE,POINT OF CARE 120 MG/DL (70-110)
[2022-03-31 20:00] VITALS: BP 110/59
[2022-03-31] MEDS: INSULIN LISPRO 100 UNITS/ML SQ PRN (20:57)
[2022-03-31] MEDS: CefTRIAXone 1 GM/DEXTROSE 50 ML IV SCH (21:05)
[2022-03-31 21:13] LABS: GLUCOSE,POINT OF CARE 156 MG/DL (70-110)
[2022-04-01] VITALS (15 sets, daily range): BP systolic 90–139; BP diastolic 48–74
[2022-04-01] MEDS: LORazepam 2 MG/ML VIAL IVP PRN (00:25)
[2022-04-01 07:54] LABS: CREATININE 6.08 mg/dL (0.60-1.30); PHOSPHORUS 5.9 mg/dL (2.5-4.9); POTASSIUM 3.3 mmol/L (3.5-5.1)
[2022-04-01] MEDS: MetroNIDAZOLE 500 MG TABLET PO SCH ×2 (08:45→21:30)
[2022-04-01] MEDS: FOLIC ACID/VIT B COMPLEX AND C TABLET PO SCH (08:46)
[2022-04-01] MEDS: MIDODRINE HCL 5 MG TABLET PO SCH ×3 (08:46→21:30)
[2022-04-01] MEDS: ATORVASTATIN CALCIUM 40 MG TABLET PO SCH (08:46)
[2022-04-01] MEDS: NYSTATIN 15 GM POWDER BOTTLE TP SCH (08:47)
[2022-04-01] MEDS: PANTOPRAZOLE SODIUM 40 MG/VIAL IVP SCH ×2 (08:47→21:29)
[2022-04-01] MEDS: TETRACYCLINE HCL 250 MG CAPSULE PO SCH (08:47)
[2022-04-01] MEDS: DOCUSATE SODIUM 100 MG CAPSULE PO SCH ×2 (08:47→21:00)
[2022-04-01] MEDS: BISMUTH SUBSALICYLATE 262 MG CHEWABLE TABLET CHEW SCH ×4 (08:47→21:31)
[2022-04-01 13:02] LABS: GLUCOSE,POINT OF CARE 101 MG/DL (70-110)
[2022-04-01 13:02] LABS: GLUCOSE,POINT OF CARE 111 MG/DL (70-110)
[2022-04-01] MEDS: BENZONATATE 100 MG CAPSULE PO PRN (19:39)
[2022-04-01] MEDS: CefTRIAXone 1 GM/DEXTROSE 50 ML IV SCH (19:39)
[2022-04-01] MEDS: ACETAMINOPHEN 325 MG TABLET PO PRN (19:48)
[2022-04-01 20:22] LABS: GLUCOSE,POINT OF CARE 109 MG/DL (70-110)
[2022-04-01] MEDS: DEXTROSE 50%-WATER 25 GM/50 ML SYRINGE IVP PRN (20:48)
[2022-04-01] MEDS: DEXTROSE 5%-0.45% SODIUM CHL 1,000 ML IV SCH (20:53)
[2022-04-01 22:33] LABS: GLUCOSE,POINT OF CARE 179 MG/DL (70-110)
[2022-04-02] VITALS: BP 107/51
[2022-04-02] MEDS: GuaiFENesin/D-METHORPHAN [SUGAR-FREE] 200-20MG/10 ML SYRUP UDCUP PO PRN ×3 (00:07→21:51)
[2022-04-02 04:00] VITALS: BP 107/55
[2022-04-02 08:00] VITALS: BP 98/58
[2022-04-02] MEDS: TETRACYCLINE HCL 250 MG CAPSULE PO SCH (08:47)
[2022-04-02] MEDS: BISMUTH SUBSALICYLATE 262 MG CHEWABLE TABLET CHEW SCH ×3 (08:48→21:00)
[2022-04-02] MEDS: MIDODRINE HCL 5 MG TABLET PO SCH ×2 (08:49→21:00)
[2022-04-02] MEDS: FOLIC ACID/VIT B COMPLEX AND C TABLET PO SCH (08:49)
[2022-04-02] MEDS: MetroNIDAZOLE 500 MG TABLET PO SCH ×2 (08:54→21:47)
[2022-04-02] MEDS: ATORVASTATIN CALCIUM 40 MG TABLET PO SCH (08:55)
[2022-04-02] MEDS: EPOETIN ALFA 10,000 UNITS/ML VIAL SQ SCH (08:55)
[2022-04-02] MEDS: BENZONATATE 100 MG CAPSULE PO PRN (08:55)
[2022-04-02] MEDS: PANTOPRAZOLE SODIUM 40 MG/VIAL IVP SCH ×2 (09:00→21:46)
[2022-04-02] MEDS: NYSTATIN 15 GM POWDER BOTTLE TP SCH (09:00)
[2022-04-02] MEDS: DOCUSATE SODIUM 100 MG CAPSULE PO SCH ×2 (09:00→21:47)
[2022-04-02 10:21] LABS: GLUCOSE,POINT OF CARE 122 MG/DL (70-110)
[2022-04-02 10:21] LABS: GLUCOSE,POINT OF CARE 122 MG/DL (70-110)
[2022-04-02] MEDS ORDERED: POTASSIUM CHLORIDE 20 MEQ ER TABLET PO ONE (10:45)
[2022-04-02 12:00] VITALS: BP 97/51
[2022-04-02 12:06] LABS: GLUCOSE,POINT OF CARE 108 MG/DL (70-110)
[2022-04-02 13:00] LABS: BASOPHILS % (AUTO) 0.5 % (0.0-2.0); EOSINOPHILS % (AUTO) 0.6 % (1.0-6.0); HEMATOCRIT 32.3 % (36-46); HEMOGLOBIN 9.8 g/dL (12.0-16.0); LYMPHOCYTES # (AUTO) 0.5 K/uL (1.0-4.8); LYMPHOCYTES % (AUTO) 3.7 % (22.0-44.0); MEAN CORPUSCULAR HEMOGLOBIN 31.5 pg (26.0-34.0); MEAN CORPUSCULAR HGB CONC 30.3 G/dL (31.0-37.0); MEAN CORPUSCULAR VOLUME 104 fL (80-100); MONOCYTES # (AUTO) 0.8 K/uL (0.1-1.0); MONOCYTES % (AUTO) 5.9 % (2.0-9.0); NEUTROPHILS # (AUTO) 12.9 K/uL (1.8-7.7); PLATELET COUNT (AUTO) 131 K/uL (150-450); RED BLOOD CELL COUNT(AUTO) 3.11 MIL/uL (4.00-5.20); RED CELL DISTRIBUTION WIDTH 26.7 % (11.5-14.5)
[2022-04-02 13:01] LABS: NEUTROPHILS % (AUTO) 89.3 % (40.0-70.0)
[2022-04-02 13:13] LABS: ALBUMIN 1.9 g/dL (3.4-5.0); BILIRUBIN,TOTAL 0.4 mg/dL (0.1-1.0); C-REACTIVE PROTEIN QUANT 6.93 mg/dL (0.00-0.30); CALCIUM, TOTAL 8.5 mg/dL (8.8-10.5); CREATININE 4.9 mg/dL (0.60-1.30); POTASSIUM 3.7 mmol/L (3.5-5.1); TOTAL PROTEIN, SERUM 6.1 g/dL (6.4-8.2)
[2022-04-02 16:00] VITALS: BP 97/51
[2022-04-02 18:17] LABS: GLUCOSE,POINT OF CARE 123 MG/DL (70-110)
[2022-04-02 20:00] VITALS: BP 121/66
[2022-04-03] VITALS (15 sets, daily range): BP systolic 93–126; BP diastolic 44–76
[2022-04-03 00:41] LABS: GLUCOSE,POINT OF CARE 114 MG/DL (70-110)
[2022-04-03] MEDS: DEXTROSE 5%-0.45% SODIUM CHL 1,000 ML IV SCH (02:45)
[2022-04-03 06:17] LABS: GLUCOSE,POINT OF CARE 135 MG/DL (70-110)
[2022-04-03] MEDS: BISMUTH SUBSALICYLATE 262 MG CHEWABLE TABLET CHEW SCH ×4 (07:53→21:53)
[2022-04-03] MEDS: PANTOPRAZOLE SODIUM 40 MG/VIAL IVP SCH ×2 (07:53→21:53)
[2022-04-03] MEDS: MetroNIDAZOLE 500 MG TABLET PO SCH ×2 (07:53→21:53)
[2022-04-03] MEDS: ATORVASTATIN CALCIUM 40 MG TABLET PO SCH (07:54)
[2022-04-03] MEDS: TETRACYCLINE HCL 250 MG CAPSULE PO SCH (07:54)
[2022-04-03] MEDS: FOLIC ACID/VIT B COMPLEX AND C TABLET PO SCH (07:54)
[2022-04-03] MEDS: DOCUSATE SODIUM 100 MG CAPSULE PO SCH ×2 (07:54→21:53)
[2022-04-03] MEDS: MIDODRINE HCL 5 MG TABLET PO SCH ×3 (07:55→21:53)
[2022-04-03] MEDS: BENZONATATE 100 MG CAPSULE PO PRN ×3 (07:55→21:53)
[2022-04-03 08:42] LABS: POTASSIUM 4.5 mmol/L (3.5-5.1)
[2022-04-03 08:43] LABS: BILIRUBIN,TOTAL 0.5 mg/dL (0.1-1.0); CALCIUM, TOTAL 8.5 mg/dL (8.8-10.5); CREATININE 5.82 mg/dL (0.60-1.30); TOTAL PROTEIN, SERUM 6.7 g/dL (6.4-8.2)
[2022-04-03] MEDS: NYSTATIN 15 GM POWDER BOTTLE TP SCH (09:00)
[2022-04-03 10:01] LABS: BASOPHILS % (AUTO) 1.4 % (0.0-2.0); EOSINOPHILS % (AUTO) 0.5 % (1.0-6.0); HEMATOCRIT 33.4 % (36-46); HEMOGLOBIN 10.5 g/dL (12.0-16.0); LYMPHOCYTES # (AUTO) 0.5 K/uL (1.0-4.8); LYMPHOCYTES % (AUTO) 3.3 % (22.0-44.0); MEAN CORPUSCULAR HEMOGLOBIN 32.2 pg (26.0-34.0); MEAN CORPUSCULAR HGB CONC 31.5 G/dL (31.0-37.0); MEAN CORPUSCULAR VOLUME 102 fL (80-100); MONOCYTES # (AUTO) 0.7 K/uL (0.1-1.0); MONOCYTES % (AUTO) 4.6 % (2.0-9.0); NEUTROPHILS # (AUTO) 13.4 K/uL (1.8-7.7); PLATELET COUNT (AUTO) 142 K/uL (150-450); RED BLOOD CELL COUNT(AUTO) 3.26 MIL/uL (4.00-5.20); RED CELL DISTRIBUTION WIDTH 26.1 % (11.5-14.5)
[2022-04-03 10:02] LABS: NEUTROPHILS % (AUTO) 90.2 % (40.0-70.0)
[2022-04-03 11:56] LABS: GLUCOSE,POINT OF CARE 123 MG/DL (70-110)
[2022-04-03] MEDS: PHENYLEPHRINE HCL 800 MG in DEXTROSE 5%-WATER 170 ML IV PRN (14:06)
[2022-04-03] MEDS: GuaiFENesin/D-METHORPHAN [SUGAR-FREE] 200-20MG/10 ML SYRUP UDCUP PO PRN ×2 (14:11→21:53)
[2022-04-03 18:11] LABS: GLUCOSE,POINT OF CARE 114 MG/DL (70-110)
[2022-04-03] MEDS: ALBUMIN HUMAN 25%-12.5GM/50ML 50 ML IV SCH (18:47)
[2022-04-03] MEDS: INSULIN LISPRO 100 UNITS/ML SQ PRN (21:55)
[2022-04-04] VITALS: BP 107/46
[2022-04-04] MEDS: ACETAMINOPHEN 325 MG TABLET PO PRN (00:04)
[2022-04-04] MEDS: ALBUMIN HUMAN 25%-12.5GM/50ML 50 ML IV SCH ×3 (00:04→17:13)
[2022-04-04 02:31] LABS: GLUCOSE,POINT OF CARE 167 MG/DL (70-110)
[2022-04-04] MEDS: DEXTROSE 5%-0.45% SODIUM CHL 1,000 ML IV SCH (03:01)
[2022-04-04 04:00] VITALS: BP 117/54
[2022-04-04 08:00] VITALS: BP 119/48
[2022-04-04 08:31] LABS: BASOPHILS % (AUTO) 0.8 % (0.0-2.0); EOSINOPHILS % (AUTO) 0.6 % (1.0-6.0); HEMATOCRIT 31.4 % (36-46); HEMOGLOBIN 9.7 g/dL (12.0-16.0); LYMPHOCYTES # (AUTO) 0.6 K/uL (1.0-4.8); LYMPHOCYTES % (AUTO) 5.2 % (22.0-44.0); MEAN CORPUSCULAR HEMOGLOBIN 31.9 pg (26.0-34.0); MEAN CORPUSCULAR HGB CONC 31.1 G/dL (31.0-37.0); MEAN CORPUSCULAR VOLUME 103 fL (80-100); MONOCYTES # (AUTO) 0.8 K/uL (0.1-1.0); MONOCYTES % (AUTO) 6.7 % (2.0-9.0); NEUTROPHILS # (AUTO) 10.3 K/uL (1.8-7.7); PLATELET COUNT (AUTO) 114 K/uL (150-450); RED BLOOD CELL COUNT(AUTO) 3.05 MIL/uL (4.00-5.20); RED CELL DISTRIBUTION WIDTH 26.3 % (11.5-14.5)
[2022-04-04 08:32] LABS: NEUTROPHILS % (AUTO) 86.7 % (40.0-70.0)
[2022-04-04] MEDS: PANTOPRAZOLE SODIUM 40 MG/VIAL IVP SCH ×2 (08:48→20:43)
[2022-04-04] MEDS: TETRACYCLINE HCL 250 MG CAPSULE PO SCH (08:48)
[2022-04-04] MEDS: FOLIC ACID/VIT B COMPLEX AND C TABLET PO SCH (08:48)
[2022-04-04] MEDS: BISMUTH SUBSALICYLATE 262 MG CHEWABLE TABLET CHEW SCH ×4 (08:49→20:43)
[2022-04-04] MEDS: MIDODRINE HCL 5 MG TABLET PO SCH ×3 (08:49→20:43)
[2022-04-04] MEDS: MetroNIDAZOLE 500 MG TABLET PO SCH ×2 (08:49→20:43)
[2022-04-04] MEDS: ATORVASTATIN CALCIUM 40 MG TABLET PO SCH (08:49)
[2022-04-04] MEDS: DOCUSATE SODIUM 100 MG CAPSULE PO SCH ×2 (08:49→20:43)
[2022-04-04 09:23] LABS: ALBUMIN 2.3 g/dL (3.4-5.0); BILIRUBIN,TOTAL 0.5 mg/dL (0.1-1.0); CALCIUM, TOTAL 8.5 mg/dL (8.8-10.5); CREATININE 4.02 mg/dL (0.60-1.30); POTASSIUM 3.8 mmol/L (3.5-5.1); TOTAL PROTEIN, SERUM 6.5 g/dL (6.4-8.2)
[2022-04-04 09:36] LABS: GLUCOSE,POINT OF CARE 131 MG/DL (70-110)
[2022-04-04] MEDS: NYSTATIN 15 GM POWDER BOTTLE TP SCH (09:42)
[2022-04-04 12:00] VITALS: BP 112/58
[2022-04-04 14:32] LABS: C-REACTIVE PROTEIN QUANT 3.91 mg/dL (0.00-0.30)
[2022-04-04] MEDS: GuaiFENesin/D-METHORPHAN [SUGAR-FREE] 200-20MG/10 ML SYRUP UDCUP PO PRN (15:58)
[2022-04-04 16:00] VITALS: BP 110/50
[2022-04-04 17:01] LABS: GLUCOSE,POINT OF CARE 130 MG/DL (70-110)
[2022-04-04 19:26] LABS: GLUCOSE,POINT OF CARE 113 MG/DL (70-110)
[2022-04-04 20:00] VITALS: BP 120/64
[2022-04-04] MEDS: INSULIN LISPRO 100 UNITS/ML SQ PRN (21:35)
[2022-04-04 23:42] LABS: GLUCOSE,POINT OF CARE 170 MG/DL (70-110)
[2022-04-05] VITALS: BP 125/66
[2022-04-05] MEDS: ALBUMIN HUMAN 25%-12.5GM/50ML 50 ML IV SCH ×3 (00:05→16:51)
[2022-04-05 04:00] VITALS: BP 121/63
[2022-04-05] MEDS: DEXTROSE 5%-0.45% SODIUM CHL 1,000 ML IV SCH (04:12)
[2022-04-05 06:50] LABS: BASOPHILS % (AUTO) 0.4 % (0.0-2.0); HEMATOCRIT 31.1 % (36-46); HEMOGLOBIN 9.7 g/dL (12.0-16.0); LYMPHOCYTES # (AUTO) 0.7 K/uL (1.0-4.8); LYMPHOCYTES % (AUTO) 5.6 % (22.0-44.0); MEAN CORPUSCULAR HEMOGLOBIN 32.3 pg (26.0-34.0); MEAN CORPUSCULAR HGB CONC 31.2 G/dL (31.0-37.0); MEAN CORPUSCULAR VOLUME 103 fL (80-100); MONOCYTES # (AUTO) 0.7 K/uL (0.1-1.0); MONOCYTES % (AUTO) 6.1 % (2.0-9.0); NEUTROPHILS # (AUTO) 10.4 K/uL (1.8-7.7); PLATELET COUNT (AUTO) 105 K/uL (150-450); RED BLOOD CELL COUNT(AUTO) 3.01 MIL/uL (4.00-5.20); RED CELL DISTRIBUTION WIDTH 25.9 % (11.5-14.5)
[2022-04-05 07:00] LABS: NEUTROPHILS % (AUTO) 86.9 % (40.0-70.0)
[2022-04-05 07:05] LABS: ALBUMIN 2.7 g/dL (3.4-5.0); BILIRUBIN,TOTAL 0.6 mg/dL (0.1-1.0); CALCIUM, TOTAL 8.9 mg/dL (8.8-10.5); CREATININE 5.24 mg/dL (0.60-1.30); POTASSIUM 4.1 mmol/L (3.5-5.1); TOTAL PROTEIN, SERUM 6.7 g/dL (6.4-8.2)
[2022-04-05 08:00] VITALS: BP 104/65
[2022-04-05] MEDS: ATORVASTATIN CALCIUM 40 MG TABLET PO SCH (08:41)
[2022-04-05] MEDS: PANTOPRAZOLE SODIUM 40 MG/VIAL IVP SCH ×2 (08:41→21:18)
[2022-04-05] MEDS: MetroNIDAZOLE 500 MG TABLET PO SCH ×2 (08:42→21:18)
[2022-04-05] MEDS: MIDODRINE HCL 5 MG TABLET PO SCH ×3 (08:42→21:19)
[2022-04-05] MEDS: FOLIC ACID/VIT B COMPLEX AND C TABLET PO SCH (08:42)
[2022-04-05] MEDS: EPOETIN ALFA 10,000 UNITS/ML VIAL SQ SCH (08:44)
[2022-04-05] MEDS: TETRACYCLINE HCL 250 MG CAPSULE PO SCH (08:44)
[2022-04-05] MEDS: DOCUSATE SODIUM 100 MG CAPSULE PO SCH ×2 (08:45→21:18)
[2022-04-05] MEDS: BISMUTH SUBSALICYLATE 262 MG CHEWABLE TABLET CHEW SCH ×4 (08:54→21:00)
[2022-04-05] MEDS: NYSTATIN 15 GM POWDER BOTTLE TP SCH (08:54)
[2022-04-05 12:00] VITALS: BP 122/44
[2022-04-05 13:40] LABS: GLUCOSE,POINT OF CARE 136 MG/DL (70-110)
[2022-04-05 13:41] LABS: GLUCOSE,POINT OF CARE 132 MG/DL (70-110)
[2022-04-05 16:00] VITALS: BP 110/76
[2022-04-05] MEDS: GuaiFENesin/D-METHORPHAN [SUGAR-FREE] 200-20MG/10 ML SYRUP UDCUP PO PRN (16:50)
[2022-04-05] MEDS: MORPHINE SULFATE 2 MG/ML SYRINGE IVP PRN (16:50)
[2022-04-05] MEDS: INSULIN LISPRO 100 UNITS/ML SQ PRN (18:18)
[2022-04-05 20:00] VITALS: BP 92/72
[2022-04-06] VITALS (16 sets, daily range): BP systolic 94–168; BP diastolic 68–96
[2022-04-06 00:16] LABS: GLUCOSE,POINT OF CARE 104 MG/DL (70-110)
[2022-04-06] MEDS: ALBUMIN HUMAN 25%-12.5GM/50ML 50 ML IV SCH ×2 (04:32→09:18)
[2022-04-06] MEDS: DEXTROSE 5%-0.45% SODIUM CHL 1,000 ML IV SCH (04:33)
[2022-04-06 04:36] LABS: GLUCOSE,POINT OF CARE 147 MG/DL (70-110)
[2022-04-06] MEDS ORDERED: SODIUM CHLORIDE 0.9% 250 ML IV ONE (04:59)
[2022-04-06] MEDS: INSULIN LISPRO 100 UNITS/ML SQ PRN ×2 (05:20→20:56)
[2022-04-06 06:09] LABS: BASOPHILS % (AUTO) 0.7 % (0.0-2.0); EOSINOPHILS % (AUTO) 0.8 % (1.0-6.0); HEMATOCRIT 29.5 % (36-46); HEMOGLOBIN 9.2 g/dL (12.0-16.0); LYMPHOCYTES # (AUTO) 0.6 K/uL (1.0-4.8); LYMPHOCYTES % (AUTO) 5.8 % (22.0-44.0); MEAN CORPUSCULAR HEMOGLOBIN 32.8 pg (26.0-34.0); MEAN CORPUSCULAR HGB CONC 31.3 G/dL (31.0-37.0); MEAN CORPUSCULAR VOLUME 105 fL (80-100); MONOCYTES # (AUTO) 0.8 K/uL (0.1-1.0); MONOCYTES % (AUTO) 7.3 % (2.0-9.0); NEUTROPHILS # (AUTO) 9.5 K/uL (1.8-7.7); PLATELET COUNT (AUTO) 99 K/uL (150-450); RED BLOOD CELL COUNT(AUTO) 2.81 MIL/uL (4.00-5.20); RED CELL DISTRIBUTION WIDTH 25.9 % (11.5-14.5)
[2022-04-06 06:11] LABS: GLUCOSE,POINT OF CARE 238 MG/DL (70-110)
[2022-04-06 06:26] LABS: ALBUMIN 2.8 g/dL (3.4-5.0); BILIRUBIN,TOTAL 0.6 mg/dL (0.1-1.0); CALCIUM, TOTAL 8.3 mg/dL (8.8-10.5); CREATININE 6.12 mg/dL (0.60-1.30); POTASSIUM 4.2 mmol/L (3.5-5.1); TOTAL PROTEIN, SERUM 6.5 g/dL (6.4-8.2)
[2022-04-06 07:46] LABS: NEUTROPHILS % (AUTO) 85.4 % (40.0-70.0)
[2022-04-06] MEDS: BISMUTH SUBSALICYLATE 262 MG CHEWABLE TABLET CHEW SCH ×5 (09:00→20:49)
[2022-04-06] MEDS: DOCUSATE SODIUM 100 MG CAPSULE PO SCH ×2 (09:18→20:35)
[2022-04-06] MEDS: PANTOPRAZOLE SODIUM 40 MG/VIAL IVP SCH ×2 (09:18→20:35)
[2022-04-06] MEDS: TETRACYCLINE HCL 250 MG CAPSULE PO SCH (09:19)
[2022-04-06] MEDS: ATORVASTATIN CALCIUM 40 MG TABLET PO SCH (09:20)
[2022-04-06] MEDS: MetroNIDAZOLE 500 MG TABLET PO SCH ×2 (09:20→20:35)
[2022-04-06] MEDS: MIDODRINE HCL 5 MG TABLET PO SCH ×3 (09:20→20:35)
[2022-04-06] MEDS: FOLIC ACID/VIT B COMPLEX AND C TABLET PO SCH (09:21)
[2022-04-06] MEDS: NYSTATIN 15 GM POWDER BOTTLE TP SCH (09:25)
[2022-04-06] MEDS ORDERED: SODIUM CHLORIDE 0.9% 2,000 ML ONE (10:38)
[2022-04-06 12:01] LABS: GLUCOSE,POINT OF CARE 84 MG/DL (70-110)
[2022-04-06 18:32] LABS: GLUCOSE,POINT OF CARE 95 MG/DL (70-110)
[2022-04-06 21:01] LABS: GLUCOSE,POINT OF CARE 145 MG/DL (70-110)
[2022-04-07] VITALS: BP 110/74
[2022-04-07 04:00] VITALS: BP 119/65
[2022-04-07] MEDS: DEXTROSE 5%-0.45% SODIUM CHL 1,000 ML IV SCH (05:32)
[2022-04-07 07:26] LABS: GLUCOSE,POINT OF CARE 107 MG/DL (70-110)
[2022-04-07 08:00] VITALS: BP 133/62
[2022-04-07] MEDS: FOLIC ACID/VIT B COMPLEX AND C TABLET PO SCH ×2 (08:36→09:00)
[2022-04-07] MEDS: DOCUSATE SODIUM 100 MG CAPSULE PO SCH ×3 (08:36→21:07)
[2022-04-07] MEDS: PANTOPRAZOLE SODIUM 40 MG/VIAL IVP SCH ×3 (08:36→21:08)
[2022-04-07] MEDS: MetroNIDAZOLE 500 MG TABLET PO SCH ×3 (08:36→21:07)
[2022-04-07] MEDS: EPOETIN ALFA 10,000 UNITS/ML VIAL SQ SCH ×2 (08:36→09:00)
[2022-04-07] MEDS: ATORVASTATIN CALCIUM 40 MG TABLET PO SCH ×2 (08:37→09:00)
[2022-04-07] MEDS: BISMUTH SUBSALICYLATE 262 MG CHEWABLE TABLET CHEW SCH ×5 (08:37→21:00)
[2022-04-07] MEDS: MIDODRINE HCL 5 MG TABLET PO SCH ×4 (08:37→21:07)
[2022-04-07] MEDS: TETRACYCLINE HCL 250 MG CAPSULE PO SCH ×2 (09:30→11:00)
[2022-04-07] MEDS: NYSTATIN 15 GM POWDER BOTTLE TP SCH (09:30)
[2022-04-07] MEDS ORDERED: VERAPAMIL HCL 2.5 MG/ML 2 ML VIAL ONE (11:28)
[2022-04-07] MEDS ORDERED: IOHEXOL 300 MG/ML 100 ML VIAL ONE (11:28)
[2022-04-07] MEDS ORDERED: LIDOCAINE/PF 1% 30 ML VIAL ONE (11:28)
[2022-04-07] MEDS ORDERED: HEPARIN SODIUM 1000 UNITS/NS 0 ML ONE (11:28)
[2022-04-07] MEDS ORDERED: IOHEXOL 300 MG/ML 50 ML VIAL ONE (11:28)
[2022-04-07] MEDS ORDERED: NITROGLYCERIN 50 MG/D5% WATER 0 ML ONE (11:28)
[2022-04-07] MEDS ORDERED: SODIUM BICARBONATE 50 MEQ/50 ML VIAL ONE (11:28)
[2022-04-07] MEDS: DEXTROSE 50%-WATER 25 GM/50 ML SYRINGE IVP PRN (12:10)
[2022-04-07 12:52] VITALS: BP 144/63
[2022-04-07 13:11] LABS: GLUCOSE,POINT OF CARE 71 MG/DL (70-110)
[2022-04-07 16:00] VITALS: BP 132/73
[2022-04-07 20:00] VITALS: BP 123/40
[2022-04-07 20:26] LABS: GLUCOSE,POINT OF CARE 104 MG/DL (70-110)
[2022-04-07] MEDS: GuaiFENesin/D-METHORPHAN [SUGAR-FREE] 200-20MG/10 ML SYRUP UDCUP PO PRN (21:06)
[2022-04-07] MEDS: ACETAMINOPHEN 325 MG TABLET PO PRN (21:07)
[2022-04-07] MEDS: MORPHINE SULFATE 2 MG/ML SYRINGE IVP PRN (21:18)
[2022-04-08] VITALS (15 sets, daily range): BP systolic 102–142; BP diastolic 45–87
[2022-04-08 00:26] LABS: GLUCOSE,POINT OF CARE 122 MG/DL (70-110)
[2022-04-08] MEDS: DEXTROSE 5%-0.45% SODIUM CHL 1,000 ML IV SCH (02:30)
[2022-04-08 07:16] LABS: GLUCOSE,POINT OF CARE 112 MG/DL (70-110)
[2022-04-08 07:16] LABS: GLUCOSE,POINT OF CARE 86 MG/DL (70-110)
[2022-04-08] MEDS: MetroNIDAZOLE 500 MG TABLET PO SCH ×2 (09:00→21:10)
[2022-04-08] MEDS: DOCUSATE SODIUM 100 MG CAPSULE PO SCH ×2 (09:00→21:10)
[2022-04-08] MEDS: MIDODRINE HCL 5 MG TABLET PO SCH ×3 (09:00→21:10)
[2022-04-08] MEDS: NYSTATIN 15 GM POWDER BOTTLE TP SCH (09:00)
[2022-04-08] MEDS: ATORVASTATIN CALCIUM 40 MG TABLET PO SCH ×2 (09:00→21:11)
[2022-04-08] MEDS: FOLIC ACID/VIT B COMPLEX AND C TABLET PO SCH (09:00)
[2022-04-08] MEDS: TETRACYCLINE HCL 250 MG CAPSULE PO SCH (09:00)
[2022-04-08] MEDS: BISMUTH SUBSALICYLATE 262 MG CHEWABLE TABLET CHEW SCH ×2 (09:00→14:08)
[2022-04-08 10:35] LABS: BASOPHILS % (AUTO) 0.5 % (0.0-2.0); EOSINOPHILS % (AUTO) 1.2 % (1.0-6.0); HEMATOCRIT 30.3 % (36-46); HEMOGLOBIN 9.5 g/dL (12.0-16.0); LYMPHOCYTES # (AUTO) 0.3 K/uL (1.0-4.8); LYMPHOCYTES % (AUTO) 4.3 % (22.0-44.0); MEAN CORPUSCULAR HEMOGLOBIN 32.4 pg (26.0-34.0); MEAN CORPUSCULAR HGB CONC 31.5 G/dL (31.0-37.0); MEAN CORPUSCULAR VOLUME 103 fL (80-100); MONOCYTES # (AUTO) 0.6 K/uL (0.1-1.0); MONOCYTES % (AUTO) 7.4 % (2.0-9.0); NEUTROPHILS # (AUTO) 6.9 K/uL (1.8-7.7); PLATELET COUNT (AUTO) 96 K/uL (150-450); RED BLOOD CELL COUNT(AUTO) 2.94 MIL/uL (4.00-5.20); RED CELL DISTRIBUTION WIDTH 24.9 % (11.5-14.5)
[2022-04-08 10:37] LABS: NEUTROPHILS % (AUTO) 86.6 % (40.0-70.0)
[2022-04-08 10:50] LABS: CALCIUM, TOTAL 8.4 mg/dL (8.8-10.5); CREATININE 2.7 mg/dL (0.60-1.30); POTASSIUM 3.1 mmol/L (3.5-5.1)
[2022-04-08] MEDS: PANTOPRAZOLE SODIUM 40 MG/VIAL IVP SCH ×2 (11:06→21:11)
[2022-04-08 12:31] LABS: GLUCOSE,POINT OF CARE 82 MG/DL (70-110)
[2022-04-08] MEDS: MORPHINE SULFATE 2 MG/ML SYRINGE IVP PRN ×2 (16:38→23:26)
[2022-04-08] MEDS: ACETAMINOPHEN 325 MG TABLET PO PRN (18:22)
[2022-04-08 20:21] LABS: GLUCOSE,POINT OF CARE 114 MG/DL (70-110)
[2022-04-08 23:31] LABS: GLUCOSE,POINT OF CARE 104 MG/DL (70-110)
[2022-04-09] VITALS: BP 106/41
[2022-04-09] MEDS: DEXTROSE 5%-0.45% SODIUM CHL 1,000 ML IV SCH (02:30)
[2022-04-09 04:00] VITALS: BP 114/38
[2022-04-09 06:31] LABS: GLUCOSE,POINT OF CARE 107 MG/DL (70-110)
[2022-04-09 08:29] VITALS: BP 135/64
[2022-04-09] MEDS: PANTOPRAZOLE SODIUM 40 MG/VIAL IVP SCH ×2 (09:02→20:49)
[2022-04-09] MEDS: MIDODRINE HCL 5 MG TABLET PO SCH ×3 (09:02→20:50)
[2022-04-09] MEDS: NYSTATIN 15 GM POWDER BOTTLE TP SCH (09:02)
[2022-04-09] MEDS: FOLIC ACID/VIT B COMPLEX AND C TABLET PO SCH (09:02)
[2022-04-09] MEDS: DOCUSATE SODIUM 100 MG CAPSULE PO SCH ×2 (09:02→20:50)
[2022-04-09] MEDS: MORPHINE SULFATE 2 MG/ML SYRINGE IVP PRN (09:03)
[2022-04-09] MEDS: EPOETIN ALFA 10,000 UNITS/ML VIAL SQ SCH (09:15)
[2022-04-09 12:00] VITALS: BP 128/64
[2022-04-09 14:46] VITALS: BP 134/83
[2022-04-09] MEDS: ACETAMINOPHEN 325 MG TABLET PO PRN (15:31)
[2022-04-09 20:03] VITALS: BP 122/66
[2022-04-09 20:06] LABS: GLUCOMETER DEV NAME(LOC) 5S.2B; GLUCOSE,POINT OF CARE 89 MG/DL (70-110)
[2022-04-09] MEDS: ATORVASTATIN CALCIUM 40 MG TABLET PO SCH (20:50)
[2022-04-09] MEDS: INSULIN LISPRO 100 UNITS/ML SQ PRN (21:11)
[2022-04-10] VITALS (16 sets, daily range): BP systolic 100–149; BP diastolic 48–88
[2022-04-10] MEDS: MORPHINE SULFATE 2 MG/ML SYRINGE IVP PRN ×2 (01:12→16:18)
[2022-04-10 06:52] LABS: BASOPHILS % (AUTO) 1.4 % (0.0-2.0); HEMOGLOBIN 9.2 g/dL (12.0-16.0); LYMPHOCYTES # (AUTO) 0.5 K/uL (1.0-4.8); LYMPHOCYTES % (AUTO) 7.3 % (22.0-44.0); MEAN CORPUSCULAR HEMOGLOBIN 32.8 pg (26.0-34.0); MEAN CORPUSCULAR HGB CONC 31.5 G/dL (31.0-37.0); MEAN CORPUSCULAR VOLUME 104 fL (80-100); MONOCYTES # (AUTO) 0.8 K/uL (0.1-1.0); MONOCYTES % (AUTO) 11.9 % (2.0-9.0); NEUTROPHILS # (AUTO) 4.9 K/uL (1.8-7.7); NEUTROPHILS % (AUTO) 77.4 % (40.0-70.0); PLATELET COUNT (AUTO) 104 K/uL (150-450); RED BLOOD CELL COUNT(AUTO) 2.79 MIL/uL (4.00-5.20); RED CELL DISTRIBUTION WIDTH 25.2 % (11.5-14.5)
[2022-04-10 06:59] LABS: ALBUMIN 2.5 g/dL (3.4-5.0); BILIRUBIN,TOTAL 0.6 mg/dL (0.1-1.0); CALCIUM, TOTAL 8.6 mg/dL (8.8-10.5); CREATININE 5.12 mg/dL (0.60-1.30); POTASSIUM 3.6 mmol/L (3.5-5.1); TOTAL PROTEIN, SERUM 6.3 g/dL (6.4-8.2)
[2022-04-10] MEDS: DEXTROSE 5%-0.45% SODIUM CHL 1,000 ML IV SCH (08:10)
[2022-04-10] MEDS: DOCUSATE SODIUM 100 MG CAPSULE PO SCH ×2 (08:10→20:56)
[2022-04-10] MEDS: NYSTATIN 15 GM POWDER BOTTLE TP SCH (08:10)
[2022-04-10] MEDS: MIDODRINE HCL 5 MG TABLET PO SCH ×3 (08:10→20:56)
[2022-04-10] MEDS: FOLIC ACID/VIT B COMPLEX AND C TABLET PO SCH (08:10)
[2022-04-10] MEDS: PANTOPRAZOLE SODIUM 40 MG/VIAL IVP SCH ×2 (08:10→20:56)
[2022-04-10] MEDS ORDERED: SODIUM CHLORIDE 0.9% 2,000 ML ONE (14:00)
[2022-04-10] MEDS: ACETAMINOPHEN 325 MG TABLET PO PRN (14:11)
[2022-04-10] MEDS: ATORVASTATIN CALCIUM 40 MG TABLET PO SCH (20:56)
[2022-04-11 01:05] VITALS: BP 122/54
[2022-04-11] MEDS: MORPHINE SULFATE 2 MG/ML SYRINGE IVP PRN (01:39)
[2022-04-11] MEDS: DEXTROSE 5%-0.45% SODIUM CHL 1,000 ML IV SCH (03:15)
[2022-04-11 04:37] VITALS: BP 141/86
[2022-04-11 05:56] LABS: GLUCOMETER DEV NAME(LOC) 5S.2B; GLUCOSE,POINT OF CARE 117 MG/DL (70-110)
[2022-04-11 07:22] VITALS: BP 130/70
[2022-04-11 08:16] LABS: GLUCOMETER DEV NAME(LOC) 5S.1B; GLUCOSE,POINT OF CARE 93 MG/DL (70-110)
[2022-04-11 08:16] LABS: GLUCOMETER DEV NAME(LOC) 5S.1B; GLUCOSE,POINT OF CARE 91 MG/DL (70-110)
[2022-04-11] MEDS: DOCUSATE SODIUM 100 MG CAPSULE PO SCH ×2 (09:05→20:13)
[2022-04-11] MEDS: PANTOPRAZOLE SODIUM 40 MG/VIAL IVP SCH ×2 (09:05→20:12)
[2022-04-11] MEDS: FOLIC ACID/VIT B COMPLEX AND C TABLET PO SCH (09:05)
[2022-04-11] MEDS: MIDODRINE HCL 5 MG TABLET PO SCH ×3 (09:06→20:13)
[2022-04-11] MEDS: NYSTATIN 15 GM POWDER BOTTLE TP SCH (09:12)
[2022-04-11 09:29] LABS: MAGNESIUM 1.7 mg/dL (1.80-2.40); PHOSPHORUS 3.6 mg/dL (2.5-4.9)
[2022-04-11 09:36] LABS: ALBUMIN 2.4 g/dL (3.4-5.0); BILIRUBIN,TOTAL 0.5 mg/dL (0.1-1.0); CALCIUM, TOTAL 8.6 mg/dL (8.8-10.5); CREATININE 3.94 mg/dL (0.60-1.30); POTASSIUM 3.9 mmol/L (3.5-5.1); TOTAL PROTEIN, SERUM 6.3 g/dL (6.4-8.2)
[2022-04-11 09:39] LABS: BASOPHILS % (AUTO) 1.3 % (0.0-2.0); EOSINOPHILS % (AUTO) 1.2 % (1.0-6.0); HEMATOCRIT 29.4 % (36-46); HEMOGLOBIN 9.3 g/dL (12.0-16.0); LYMPHOCYTES # (AUTO) 0.4 K/uL (1.0-4.8); MEAN CORPUSCULAR HEMOGLOBIN 33.5 pg (26.0-34.0); MEAN CORPUSCULAR HGB CONC 31.6 G/dL (31.0-37.0); MEAN CORPUSCULAR VOLUME 106 fL (80-100); MONOCYTES # (AUTO) 0.6 K/uL (0.1-1.0); MONOCYTES % (AUTO) 8.8 % (2.0-9.0); NEUTROPHILS # (AUTO) 5.7 K/uL (1.8-7.7); NEUTROPHILS % (AUTO) 82.7 % (40.0-70.0); PLATELET COUNT (AUTO) 101 K/uL (150-450); RED BLOOD CELL COUNT(AUTO) 2.78 MIL/uL (4.00-5.20); RED CELL DISTRIBUTION WIDTH 24.8 % (11.5-14.5)
[2022-04-11 11:29] VITALS: BP 153/84
[2022-04-11 11:42] LABS: GLUCOMETER DEV NAME(LOC) 5N.1C; GLUCOSE,POINT OF CARE 95 MG/DL (70-110)
[2022-04-11 15:10] VITALS: BP 111/83
[2022-04-11] MEDS: INSULIN LISPRO 100 UNITS/ML SQ PRN (19:01)
[2022-04-11 19:43] VITALS: BP 148/76
[2022-04-11] MEDS: ATORVASTATIN CALCIUM 40 MG TABLET PO SCH (20:13)
[2022-04-12 00:17] VITALS: BP 149/81
[2022-04-12 00:25] LABS: GLUCOMETER DEV NAME(LOC) 5N.1C; GLUCOSE,POINT OF CARE 157 MG/DL (70-110)
[2022-04-12 00:25] LABS: GLUCOMETER DEV NAME(LOC) 5N.1C; GLUCOSE,POINT OF CARE 127 MG/DL (70-110)
[2022-04-12] MEDS: DEXTROSE 5%-0.45% SODIUM CHL 1,000 ML IV SCH (02:32)
[2022-04-12 03:54] VITALS: BP 149/82
[2022-04-12] MEDS: GuaiFENesin/D-METHORPHAN [SUGAR-FREE] 200-20MG/10 ML SYRUP UDCUP PO PRN ×2 (05:24→21:45)
[2022-04-12 06:56] LABS: GLUCOMETER DEV NAME(LOC) 5S.2B; GLUCOSE,POINT OF CARE 116 MG/DL (70-110)
[2022-04-12 08:14] VITALS: BP 132/77
[2022-04-12] MEDS: DOCUSATE SODIUM 100 MG CAPSULE PO SCH ×2 (08:42→21:19)
[2022-04-12] MEDS: PANTOPRAZOLE SODIUM 40 MG/VIAL IVP SCH ×2 (08:42→21:19)
[2022-04-12] MEDS: MIDODRINE HCL 5 MG TABLET PO SCH ×3 (08:42→21:19)
[2022-04-12] MEDS: FOLIC ACID/VIT B COMPLEX AND C TABLET PO SCH (08:42)
[2022-04-12] MEDS: NYSTATIN 15 GM POWDER BOTTLE TP SCH (08:43)
[2022-04-12] MEDS: EPOETIN ALFA 10,000 UNITS/ML VIAL SQ SCH (08:48)
[2022-04-12 11:11] VITALS: BP 141/72
[2022-04-12 11:45] LABS: BASOPHILS % (AUTO) 0.5 % (0.0-2.0); EOSINOPHILS % (AUTO) 1.1 % (1.0-6.0); HEMATOCRIT 32.1 % (36-46); LYMPHOCYTES # (AUTO) 0.4 K/uL (1.0-4.8); LYMPHOCYTES % (AUTO) 5.6 % (22.0-44.0); MEAN CORPUSCULAR HEMOGLOBIN 32.9 pg (26.0-34.0); MEAN CORPUSCULAR HGB CONC 31.1 G/dL (31.0-37.0); MEAN CORPUSCULAR VOLUME 106 fL (80-100); MONOCYTES # (AUTO) 0.7 K/uL (0.1-1.0); MONOCYTES % (AUTO) 8.3 % (2.0-9.0); NEUTROPHILS # (AUTO) 6.7 K/uL (1.8-7.7); NEUTROPHILS % (AUTO) 84.5 % (40.0-70.0); PLATELET COUNT (AUTO) 108 K/uL (150-450); RED BLOOD CELL COUNT(AUTO) 3.03 MIL/uL (4.00-5.20); RED CELL DISTRIBUTION WIDTH 24.9 % (11.5-14.5)
[2022-04-12 12:05] LABS: ALBUMIN 2.4 g/dL (3.4-5.0); BILIRUBIN,TOTAL 0.6 mg/dL (0.1-1.0); CALCIUM, TOTAL 8.4 mg/dL (8.8-10.5); CREATININE 5.15 mg/dL (0.60-1.30); POTASSIUM 4.4 mmol/L (3.5-5.1); TOTAL PROTEIN, SERUM 6.4 g/dL (6.4-8.2)
[2022-04-12 16:50] VITALS: BP 105/73
[2022-04-12 20:44] VITALS: BP 100/63
[2022-04-12] MEDS: INSULIN LISPRO 100 UNITS/ML SQ PRN (21:18)
[2022-04-12] MEDS: ATORVASTATIN CALCIUM 40 MG TABLET PO SCH (21:19)
[2022-04-13] VITALS (14 sets, daily range): BP systolic 100–147; BP diastolic 43–75
[2022-04-13] MEDS: DEXTROSE 5%-0.45% SODIUM CHL 1,000 ML IV SCH (03:28)
[2022-04-13 07:16] LABS: GLUCOMETER DEV NAME(LOC) 5S.2B; GLUCOSE,POINT OF CARE 159 MG/DL (70-110)
[2022-04-13] MEDS: FOLIC ACID/VIT B COMPLEX AND C TABLET PO SCH (08:27)
[2022-04-13] MEDS: MIDODRINE HCL 5 MG TABLET PO SCH ×3 (08:27→20:05)
[2022-04-13] MEDS: DOCUSATE SODIUM 100 MG CAPSULE PO SCH ×2 (08:27→20:05)
[2022-04-13] MEDS: NYSTATIN 15 GM POWDER BOTTLE TP SCH (08:28)
[2022-04-13] MEDS: PANTOPRAZOLE SODIUM 40 MG/VIAL IVP SCH ×2 (08:28→20:05)
[2022-04-13] MEDS: GuaiFENesin/D-METHORPHAN [SUGAR-FREE] 200-20MG/10 ML SYRUP UDCUP PO PRN ×2 (15:30→20:18)
[2022-04-13] MEDS: ATORVASTATIN CALCIUM 40 MG TABLET PO SCH (20:05)
[2022-04-14 00:44] VITALS: BP 112/67
[2022-04-14 02:11] LABS: GLUCOMETER DEV NAME(LOC) 5S.1B; GLUCOSE,POINT OF CARE 123 MG/DL (70-110)
[2022-04-14 02:11] LABS: GLUCOMETER DEV NAME(LOC) 5S.1B; GLUCOSE,POINT OF CARE 73 MG/DL (70-110)
[2022-04-14 02:12] LABS: GLUCOMETER DEV NAME(LOC) 5S.1B; GLUCOSE,POINT OF CARE 108 MG/DL (70-110)
[2022-04-14 03:31] LABS: GLUCOMETER DEV NAME(LOC) 5N.1C; GLUCOSE,POINT OF CARE 95 MG/DL (70-110)
[2022-04-14 03:31] LABS: GLUCOMETER DEV NAME(LOC) 5N.1C; GLUCOSE,POINT OF CARE 123 MG/DL (70-110)
[2022-04-14 03:31] LABS: GLUCOMETER DEV NAME(LOC) 5N.1C; GLUCOSE,POINT OF CARE 96 MG/DL (70-110)
[2022-04-14 05:41] VITALS: BP 134/73
[2022-04-14 07:12] LABS: BASOPHILS % (AUTO) 0.8 % (0.0-2.0); EOSINOPHILS % (AUTO) 1.1 % (1.0-6.0); HEMATOCRIT 46.3 % (36-46); HEMOGLOBIN 14.9 g/dL (12.0-16.0); LYMPHOCYTES # (AUTO) 0.3 K/uL (1.0-4.8); MEAN CORPUSCULAR HEMOGLOBIN 33.5 pg (26.0-34.0); MEAN CORPUSCULAR HGB CONC 32.3 G/dL (31.0-37.0); MEAN CORPUSCULAR VOLUME 104 fL (80-100); MONOCYTES # (AUTO) 0.4 K/uL (0.1-1.0); MONOCYTES % (AUTO) 8.6 % (2.0-9.0); NEUTROPHILS # (AUTO) 3.6 K/uL (1.8-7.7); NEUTROPHILS % (AUTO) 82.5 % (40.0-70.0); RED BLOOD CELL COUNT(AUTO) 4.47 MIL/uL (4.00-5.20); RED CELL DISTRIBUTION WIDTH 23.9 % (11.5-14.5)
[2022-04-14 07:14] LABS: PLATELET COUNT (AUTO) 59 K/uL (150-450)
[2022-04-14 07:18] LABS: CALCIUM, TOTAL 8.4 mg/dL (8.8-10.5); CREATININE 6.68 mg/dL (0.60-1.30); POTASSIUM 4.7 mmol/L (3.5-5.1)
[2022-04-14 07:25] LABS: MAGNESIUM 1.8 mg/dL (1.80-2.40); PHOSPHORUS 4.6 mg/dL (2.5-4.9)
[2022-04-14 07:34] VITALS: BP 128/88
[2022-04-14] MEDS: DOCUSATE SODIUM 100 MG CAPSULE PO SCH ×2 (09:36→21:07)
[2022-04-14] MEDS: FOLIC ACID/VIT B COMPLEX AND C TABLET PO SCH (09:36)
[2022-04-14] MEDS: PANTOPRAZOLE SODIUM 40 MG/VIAL IVP SCH ×2 (09:36→21:07)
[2022-04-14] MEDS: MIDODRINE HCL 5 MG TABLET PO SCH ×3 (09:37→21:07)
[2022-04-14] MEDS: NYSTATIN 15 GM POWDER BOTTLE TP SCH (09:37)
[2022-04-14] MEDS: EPOETIN ALFA 10,000 UNITS/ML VIAL SQ SCH (09:39)
[2022-04-14 11:58] VITALS: BP 131/99
[2022-04-14 16:47] VITALS: BP 132/69
[2022-04-14 19:11] LABS: GLUCOMETER DEV NAME(LOC) 5S.2B; GLUCOSE,POINT OF CARE 121 MG/DL (70-110)
[2022-04-14 20:10] VITALS: BP 115/61
[2022-04-14] MEDS: ATORVASTATIN CALCIUM 40 MG TABLET PO SCH (21:07)
[2022-04-15] VITALS (13 sets, daily range): BP systolic 100–145; BP diastolic 48–99
[2022-04-15 01:51] LABS: GLUCOMETER DEV NAME(LOC) 5S.1B; GLUCOSE,POINT OF CARE 92 MG/DL (70-110)
[2022-04-15 01:51] LABS: GLUCOMETER DEV NAME(LOC) 5S.1B; GLUCOSE,POINT OF CARE 93 MG/DL (70-110)
[2022-04-15] MEDS: DEXTROSE 50%-WATER 25 GM/50 ML SYRINGE IVP PRN (06:51)
[2022-04-15 07:09] LABS: BASOPHILS % (AUTO) 1.3 % (0.0-2.0); EOSINOPHILS % (AUTO) 1.1 % (1.0-6.0); HEMATOCRIT 29.3 % (36-46); HEMOGLOBIN 9.4 g/dL (12.0-16.0); LYMPHOCYTES # (AUTO) 0.5 K/uL (1.0-4.8); LYMPHOCYTES % (AUTO) 7.2 % (22.0-44.0); MEAN CORPUSCULAR HEMOGLOBIN 33.1 pg (26.0-34.0); MEAN CORPUSCULAR HGB CONC 32.1 G/dL (31.0-37.0); MEAN CORPUSCULAR VOLUME 103 fL (80-100); MONOCYTES # (AUTO) 0.7 K/uL (0.1-1.0); MONOCYTES % (AUTO) 9.2 % (2.0-9.0); NEUTROPHILS % (AUTO) 81.2 % (40.0-70.0); PLATELET COUNT (AUTO) 113 K/uL (150-450); RED BLOOD CELL COUNT(AUTO) 2.84 MIL/uL (4.00-5.20); RED CELL DISTRIBUTION WIDTH 23.2 % (11.5-14.5)
[2022-04-15 07:31] LABS: CALCIUM, TOTAL 8.3 mg/dL (8.8-10.5); CREATININE 7.21 mg/dL (0.60-1.30); MAGNESIUM 1.8 mg/dL (1.80-2.40); POTASSIUM 4.7 mmol/L (3.5-5.1)
[2022-04-15 07:53] LABS: PHOSPHORUS 5.1 mg/dL (2.5-4.9)
[2022-04-15] MEDS: PANTOPRAZOLE SODIUM 40 MG/VIAL IVP SCH ×2 (08:22→20:30)
[2022-04-15] MEDS: FOLIC ACID/VIT B COMPLEX AND C TABLET PO SCH (08:30)
[2022-04-15] MEDS: DOCUSATE SODIUM 100 MG CAPSULE PO SCH ×2 (08:30→20:30)
[2022-04-15] MEDS: MIDODRINE HCL 5 MG TABLET PO SCH ×3 (08:31→20:30)
[2022-04-15] MEDS: NYSTATIN 15 GM POWDER BOTTLE TP SCH (08:31)
[2022-04-15 11:41] LABS: GLUCOMETER DEV NAME(LOC) 5S.2B; GLUCOSE,POINT OF CARE 51 MG/DL (70-110)
[2022-04-15] MEDS: ACETAMINOPHEN 325 MG TABLET PO PRN (13:26)
[2022-04-15 17:26] LABS: GLUCOMETER DEV NAME(LOC) 5S.1B; GLUCOSE,POINT OF CARE 84 MG/DL (70-110)
[2022-04-15] MEDS: ATORVASTATIN CALCIUM 40 MG TABLET PO SCH (20:30)
[2022-04-15] MEDS: MORPHINE SULFATE 2 MG/ML SYRINGE IVP PRN (20:31)
[2022-04-15] MEDS: INSULIN LISPRO 100 UNITS/ML SQ PRN (20:33)
[2022-04-15 21:21] LABS: GLUCOMETER DEV NAME(LOC) 5S.2B; GLUCOSE,POINT OF CARE 159 MG/DL (70-110)
[2022-04-15 22:21] LABS: GLUCOMETER DEV NAME(LOC) 5S.1B; GLUCOSE,POINT OF CARE 70 MG/DL (70-110)
[2022-04-16 00:13] VITALS: BP 102/56
[2022-04-16 05:07] VITALS: BP 114/57
[2022-04-16] MEDS: DEXTROSE 50%-WATER 25 GM/50 ML SYRINGE IVP PRN (06:04)
[2022-04-16 07:52] VITALS: BP 109/71
[2022-04-16] MEDS: NYSTATIN 15 GM POWDER BOTTLE TP SCH (09:00)
[2022-04-16] MEDS: DOCUSATE SODIUM 100 MG CAPSULE PO SCH (09:19)
[2022-04-16] MEDS: FOLIC ACID/VIT B COMPLEX AND C TABLET PO SCH (09:19)
[2022-04-16] MEDS: MIDODRINE HCL 5 MG TABLET PO SCH (09:19)
[2022-04-16] MEDS: BENZONATATE 100 MG CAPSULE PO PRN (09:19)
[2022-04-16] MEDS: PANTOPRAZOLE SODIUM 40 MG/VIAL IVP SCH (09:20)
[2022-04-16] MEDS: EPOETIN ALFA 10,000 UNITS/ML VIAL SQ SCH (09:20)
[2022-04-16 11:19] VITALS: BP 110/58
[2022-04-16] MEDS ORDERED: SEVELAMER CARBONATE 800 MG TABLET PO SCH (18:00)
[2022-04-16 20:11] LABS: GLUCOMETER DEV NAME(LOC) 5S.1B; GLUCOSE,POINT OF CARE 109 MG/DL (70-110)
[2022-04-16 20:16] LABS: GLUCOMETER DEV NAME(LOC) 5S.2B; GLUCOSE,POINT OF CARE 99 MG/DL (70-110)
[2022-04-16 20:16] LABS: GLUCOMETER DEV NAME(LOC) 5S.2B; GLUCOSE,POINT OF CARE 51 MG/DL (70-110)
[2022-04-17 05:16] LABS: GLUCOMETER DEV NAME(LOC) 5N.1C; GLUCOSE,POINT OF CARE 89 MG/DL (70-110)
== END 2022-04-16 15:20 | DRG 871 ==
LOC: EMS 21:49 → ICUN 23:57 → 5S 23:57 → UNDOADMIN 23:57 → 5S 03-20 18:59 → ICU 03-22 05:30 → 5S 03-23 19:32 → ICU 03-26 04:00 → 5S 04-09 07:19
PROVIDERS: ADMIT Internal Medicine; ATTEND Internal Medicine
PROC: 30233N1 Transfusion of Nonautologous Red Blood Cells into Peripheral Vein, Percutaneous Approach (ICD-10-PCS; 2022-03-20)
PROC: 0DB98ZX Excision of Duodenum, Via Natural or Artificial Opening Endoscopic, Diagnostic (ICD-10-PCS; 2022-03-21)
PROC: 0DB78ZX Excision of Stomach, Pylorus, Via Natural or Artificial Opening Endoscopic, Diagnostic (ICD-10-PCS; 2022-03-21)
PROC: 0W3P8ZZ Control Bleeding in Gastrointestinal Tract, Via Natural or Artificial Opening Endoscopic (ICD-10-PCS; 2022-03-21)
PROC: 30233N1 Transfusion of Nonautologous Red Blood Cells into Peripheral Vein, Percutaneous Approach (ICD-10-PCS; 2022-03-21)
PROC: 5A1D70Z Performance of Urinary Filtration, Intermittent, Less than 6 Hours Per Day (ICD-10-PCS; 2022-03-22)
PROC: 30233N1 Transfusion of Nonautologous Red Blood Cells into Peripheral Vein, Percutaneous Approach (ICD-10-PCS; 2022-03-23)
PROC: 5A1D70Z Performance of Urinary Filtration, Intermittent, Less than 6 Hours Per Day (ICD-10-PCS; 2022-03-24)
PROC: 5A1D70Z Performance of Urinary Filtration, Intermittent, Less than 6 Hours Per Day (ICD-10-PCS; 2022-03-26)
PROC: 5A1D70Z Performance of Urinary Filtration, Intermittent, Less than 6 Hours Per Day (ICD-10-PCS; 2022-03-28)
PROC: 5A1D70Z Performance of Urinary Filtration, Intermittent, Less than 6 Hours Per Day (ICD-10-PCS; 2022-03-31)
PROC: 5A1D70Z Performance of Urinary Filtration, Intermittent, Less than 6 Hours Per Day (ICD-10-PCS; 2022-04-02)
PROC: 5A1D70Z Performance of Urinary Filtration, Intermittent, Less than 6 Hours Per Day (ICD-10-PCS; 2022-04-04)
PROC: 06HM33Z Insertion of Infusion Device into Right Femoral Vein, Percutaneous Approach (ICD-10-PCS; principal; 2022-04-05)
PROC: B54BZZA Ultrasonography of Right Lower Extremity Veins, Guidance (ICD-10-PCS; 2022-04-05)
PROC: 05HD33Z Insertion of Infusion Device into Right Cephalic Vein, Percutaneous Approach (ICD-10-PCS; 2022-04-05)
PROC: 5A1D70Z Performance of Urinary Filtration, Intermittent, Less than 6 Hours Per Day (ICD-10-PCS; 2022-04-07)
PROC: 5A1D70Z Performance of Urinary Filtration, Intermittent, Less than 6 Hours Per Day (ICD-10-PCS; 2022-04-09)
PROC: 5A1D70Z Performance of Urinary Filtration, Intermittent, Less than 6 Hours Per Day (ICD-10-PCS; 2022-04-13)
PROC: 5A1D70Z Performance of Urinary Filtration, Intermittent, Less than 6 Hours Per Day (ICD-10-PCS; 2022-04-15)
DX: A41.9 Sepsis, unspecified organism (principal); I21.4 Non-ST elevation (NSTEMI) myocardial infarction; J18.9 Pneumonia, unspecified organism; N18.6 End stage renal disease; R57.1 Hypovolemic shock; K29.61 Other gastritis with bleeding; K29.81 Duodenitis with bleeding; K25.4 Chronic or unspecified gastric ulcer with hemorrhage; K26.4 Chronic or unspecified duodenal ulcer with hemorrhage; E87.20 Acidosis, unspecified; I13.2 Hypertensive heart and chronic kidney disease with heart failure and with stage 5 chronic kidney disease, or end stage renal disease; D62 Acute posthemorrhagic anemia; J98.11 Atelectasis; E87.1 Hypo-osmolality and hyponatremia; Z68.41 Body mass index [BMI] 40.0-44.9, adult; E66.01 Morbid (severe) obesity due to excess calories; E87.5 Hyperkalemia; Z99.2 Dependence on renal dialysis; I50.9 Heart failure, unspecified; D64.9 Anemia, unspecified; B96.81 Helicobacter pylori [H. pylori] as the cause of diseases classified elsewhere; E78.5 Hyperlipidemia, unspecified; N83.201 Unspecified ovarian cyst, right side; L98.9 Disorder of the skin and subcutaneous tissue, unspecified; E11.22 Type 2 diabetes mellitus with diabetic chronic kidney disease; I25.10 Atherosclerotic heart disease of native coronary artery without angina pectoris; R09.02 Hypoxemia; D63.1 Anemia in chronic kidney disease; I48.0 Paroxysmal atrial fibrillation; D69.6 Thrombocytopenia, unspecified; E86.9 Volume depletion, unspecified; E87.6 Hypokalemia; I44.7 Left bundle-branch block, unspecified; E83.39 Other disorders of phosphorus metabolism; Z82.49 Family history of ischemic heart disease and other diseases of the circulatory system; Z79.899 Other long term (current) drug therapy; Z91.199 Patient's noncompliance with other medical treatment and regimen due to unspecified reason; Z74.01 Bed confinement status; Z53.20 Procedure and treatment not carried out because of patient's decision for unspecified reasons
CPT/HCPCS: 36245; 36556; 36569; 36600; 71045; 71250; 72146; 74177; 76856; 76937; 78806; 80048; 80053; 82150; 82271; 82533; 82550; 82805; 82947; 82962; 83036; 83540; 83550; 83690; 83735; 83880; 84100; 84132; 84484; 85014; 85018; 85025; 86140; 86738; 86850; 86900; 86901; 86923; 87040; 87081; 87340; 87804; 88305; 88342; 90935; 93005; 93306; 93970; 97110; 97162; 97167; 97530; 97535; 99291; A9547; C9113; G0378; J0131; J0171; J0610; J0696; J0834; J0885; J1200; J1644; J1815; J2060; J2270; J2370; J2405; J3490; J7030; J7040; J7050; J7060; P9016; P9047; Q9967; 36415-L1; 36415-TC; Z7610